=== PATIENT | female | born 1985 | race Caucasian/White ===

== ENCOUNTER 2021-07-28 14:37 | Inpatient (IN) | payer OTHER ==
[2021-07-28] MEDS ORDERED: MENTHOL/PHENOL 1 EACH UD MM PRN (17:02)
[2021-07-28] MEDS ORDERED: MAG HYDROX/AL HYDROX/SIMETH 30 ML UNIT-DOSE CUP PO PRN (17:02)
[2021-07-28] MEDS ORDERED: MAGNESIUM CITRATE 300 ML BOTTLE PO PRN (17:02)
[2021-07-28] MEDS ORDERED: ACETAMINOPHEN 325 MG TABLET (FP) PO PRN ×2 (17:02)
[2021-07-28] MEDS ORDERED: MAGNESIUM HYDROX 2400MG/30ML ORAL SUSPENSION 30 ML CUP PO PRN (17:02)
[2021-07-28] MEDS ORDERED: IBUPROFEN 400 MG TABLET (FP) PO PRN (17:02)
[2021-07-28] MEDS ORDERED: ONDANSETRON *ODT* 4 MG TABLET SL PRN (17:02)
[2021-07-28 17:08] VITALS: BMI 25.8
[2021-07-28] MEDS ORDERED: cloNIDine HCL 0.1 MG TABLET PO PRN (17:15)
[2021-07-28] MEDS: PRENATAL VITAMINS W/ FOLIC ACID TABLET (FP) PO SCH (19:10)
[2021-07-28] MEDS: hydrOXYzine PAMOATE 25 MG CAPSULE (FP) PO SCH ×2 (19:10→22:54)
[2021-07-28] MEDS: THIAMINE HCL 100 MG TABLET (FP) PO SCH (22:54)
[2021-07-28] MEDS: MELATONIN 5 MG TABLETS PO SCH (22:54)
[2021-07-29] MEDS: hydrOXYzine PAMOATE 25 MG CAPSULE (FP) PO SCH (07:08)
[2021-07-29 09:54] LABS: HEMATOCRIT 36.6 % (32.4-45.2); HEMOGLOBIN 12.5 GM/dL (10.7-15.3); MCH 31.1 pg (25.7-33.7); MCHC 34.1 g/dl (32.0-36.0); MEAN CELL VOLUME 91.3 fl (80-96); MEAN PLT VOLUME 8.8 fl (7.5-11.1); PLATELET COUNT 209 10^3/uL (134-434); RBC 4.01 M/mm3 (3.60-5.2); RDW 13.4 % (11.6-15.6); WHITE BLOOD COUNT 6.6 K/mm3 (4.0-10.0)
[2021-07-29] MEDS: methaDONE HCL 10 MG TABLET (FOR DETOX USE ONLY) PO ONE ×2 (10:05→10:20)
[2021-07-29 10:08] LABS: BLOOD UREA NITROGEN 15.8 mg/dL (7-18); CALCIUM 8.9 mg/dL (8.5-10.1)
[2021-07-29 10:09] LABS: ALBUMIN 3.3 g/dl (3.4-5.0)
[2021-07-29 10:11] LABS: CREATININE 0.7 mg/dL (0.55-1.3)
[2021-07-29 10:13] LABS: BILIRUBIN,TOTAL 0.4 mg/dL (0.2-1)
[2021-07-29] MEDS: PRENATAL VITAMINS W/ FOLIC ACID TABLET (FP) PO SCH (11:05)
[2021-07-29] MEDS: METHOCARBAMOL 500 MG TABLET PO PRN ×2 (12:11→22:24)
[2021-07-29] MEDS: BISMUTH SUBSALICYLATE 524 MG/30 ML PO PRN (12:12)
[2021-07-29] MEDS ORDERED: methaDONE HCL 10 MG TABLET (FOR DETOX USE ONLY) PO ONE (14:00)
[2021-07-29] MEDS ORDERED: methaDONE HCL 10 MG TABLET (FOR DETOX USE ONLY) ONE (15:02)
[2021-07-29] MEDS: GABAPENTIN 300 MG CAPSULE PO SCH (22:01)
[2021-07-29] MEDS: QUEtiapine FUMARATE 25 MG TABLET PO SCH (22:01)
[2021-07-29] MEDS: THIAMINE HCL 100 MG TABLET (FP) PO SCH (22:01)
[2021-07-29] MEDS: MELATONIN 5 MG TABLETS PO SCH (22:01)
[2021-07-30] MEDS ORDERED: methaDONE HCL 10 MG TABLET (FOR DETOX USE ONLY) ONE (09:39)
[2021-07-30] MEDS: GABAPENTIN 300 MG CAPSULE PO SCH ×2 (10:30→22:15)
[2021-07-30] MEDS: PRENATAL VITAMINS W/ FOLIC ACID TABLET (FP) PO SCH (10:30)
[2021-07-30] MEDS: ESCITALOPRAM OXALATE 20 MG TABLET PO SCH (10:30)
[2021-07-30] MEDS: QUEtiapine FUMARATE 25 MG TABLET PO SCH (22:15)
[2021-07-30] MEDS: MELATONIN 5 MG TABLETS PO SCH (22:15)
[2021-07-30] MEDS: THIAMINE HCL 100 MG TABLET (FP) PO SCH (22:15)
[2021-07-30] MEDS: diazePAM 5 MG TABLET PO PRN (22:17)
[2021-07-31] MEDS ORDERED: methaDONE HCL 10 MG TABLET (FOR DETOX USE ONLY) PO ONE (10:00)
[2021-07-31] MEDS: ESCITALOPRAM OXALATE 20 MG TABLET PO SCH (10:44)
[2021-07-31] MEDS: GABAPENTIN 300 MG CAPSULE PO SCH ×2 (10:44→21:55)
[2021-07-31] MEDS: PRENATAL VITAMINS W/ FOLIC ACID TABLET (FP) PO SCH (10:46)
[2021-07-31] MEDS: QUEtiapine FUMARATE 25 MG TABLET PO SCH (21:55)
[2021-07-31] MEDS: MELATONIN 5 MG TABLETS PO SCH (21:55)
[2021-07-31] MEDS: THIAMINE HCL 100 MG TABLET (FP) PO SCH (21:55)
[2021-07-31] MEDS: METHOCARBAMOL 500 MG TABLET PO PRN (21:57)
[2021-07-31] MEDS: diazePAM 5 MG TABLET PO PRN (21:57)
[2021-07-31] MEDS: BISMUTH SUBSALICYLATE 524 MG/30 ML PO PRN (21:59)
[2021-08-01] MEDS: ESCITALOPRAM OXALATE 20 MG TABLET PO SCH (10:15)
[2021-08-01] MEDS: PRENATAL VITAMINS W/ FOLIC ACID TABLET (FP) PO SCH (10:15)
[2021-08-01] MEDS: GABAPENTIN 300 MG CAPSULE PO SCH ×2 (10:15→22:33)
[2021-08-01] MEDS: diazePAM 5 MG TABLET PO PRN ×2 (15:25→22:33)
[2021-08-01] MEDS: NICOTINE 10 MG CARTRIDGE (INHALER) IH PRN ×2 (15:30→22:51)
[2021-08-01] MEDS: METHOCARBAMOL 500 MG TABLET PO PRN (18:05)
[2021-08-01] MEDS: QUEtiapine FUMARATE 25 MG TABLET PO SCH (22:33)
[2021-08-01] MEDS: MELATONIN 5 MG TABLETS PO SCH (22:34)
[2021-08-01] MEDS: THIAMINE HCL 100 MG TABLET (FP) PO SCH (22:34)
[2021-08-02] MEDS: diazePAM 5 MG TABLET PO PRN ×2 (06:52→10:51)
[2021-08-02] MEDS ORDERED: methaDONE HCL 10 MG TABLET (FOR DETOX USE ONLY) PO ONE (10:00)
[2021-08-02] MEDS: GABAPENTIN 300 MG CAPSULE PO SCH ×2 (10:52→22:17)
[2021-08-02] MEDS: ESCITALOPRAM OXALATE 20 MG TABLET PO SCH (10:52)
[2021-08-02] MEDS: PRENATAL VITAMINS W/ FOLIC ACID TABLET (FP) PO SCH (10:52)
[2021-08-02] MEDS: METHOCARBAMOL 500 MG TABLET PO PRN (19:16)
[2021-08-02] MEDS: THIAMINE HCL 100 MG TABLET (FP) PO SCH (22:17)
[2021-08-02] MEDS: QUEtiapine FUMARATE 25 MG TABLET PO SCH (22:17)
[2021-08-02] MEDS: MELATONIN 5 MG TABLETS PO SCH (22:17)
[2021-08-02] MEDS: hydrOXYzine PAMOATE 25 MG CAPSULE (FP) PO PRN (22:45)
[2021-08-03] MEDS: hydrOXYzine PAMOATE 25 MG CAPSULE (FP) PO PRN (08:56)
[2021-08-03] MEDS: GABAPENTIN 300 MG CAPSULE PO SCH (10:22)
[2021-08-03] MEDS: ESCITALOPRAM OXALATE 20 MG TABLET PO SCH (10:22)
[2021-08-03] MEDS: PRENATAL VITAMINS W/ FOLIC ACID TABLET (FP) PO SCH (10:22)
[2021-08-03 12:54] VITALS: BP 88/51; PULSE 63; TEMP 97.7
== END 2021-08-03 13:30 | disposition other institution (70) | DRG 773 ==
LOC: YASAS 14:37 → UNDOADMIN 17:20 → Y3N 17:20
PROVIDERS: ADMIT Allergy & Immunology; ATTEND Allergy & Immunology
PROC: HZ2ZZZZ Detoxification Services for Substance Abuse Treatment (ICD-10-PCS; principal; 2021-07-28)
DX: F11.23 Opioid dependence with withdrawal (principal); F10.230 Alcohol dependence with withdrawal, uncomplicated; F14.20 Cocaine dependence, uncomplicated; F17.210 Nicotine dependence, cigarettes, uncomplicated; F19.24 Other psychoactive substance dependence with psychoactive substance-induced mood disorder; F32.A Depression, unspecified; Z56.0 Unemployment, unspecified; Z59.01 Sheltered homelessness
CPT/HCPCS: 36415; 80053; 85027; 86780; C9803; J0735; U0003; U0005

== ENCOUNTER 2021-08-03 14:02 | Inpatient (IN) | payer OTHER ==
[2021-08-03] MEDS ORDERED: MAGNESIUM HYDROX 2400MG/30ML ORAL SUSPENSION 30 ML CUP PO PRN (14:09)
[2021-08-03] MEDS ORDERED: MAGNESIUM CITRATE 300 ML BOTTLE PO PRN (14:09)
[2021-08-03] MEDS ORDERED: IBUPROFEN 400 MG TABLET (FP) PO PRN (14:09)
[2021-08-03] MEDS ORDERED: MAG HYDROX/AL HYDROX/SIMETH 30 ML UNIT-DOSE CUP PO PRN (14:09)
[2021-08-03] MEDS ORDERED: ACETAMINOPHEN 325 MG TABLET (FP) PO PRN (14:09)
[2021-08-03] MEDS ORDERED: P-EPHED 60MG/TRIPROLIDI 2.5MG TABLET PO PRN (14:09)
[2021-08-03] MEDS ORDERED: guaiFENesin 200 MG/10 ML 10 ML UNIT-DOSE CUPS PO PRN (14:09)
[2021-08-03] MEDS ORDERED: MENTHOL/PHENOL 1 EACH UD MM PRN (14:09)
[2021-08-03] MEDS ORDERED: LOPERAMIDE HCL 2 MG CAPSULE PO PRN (14:09)
[2021-08-03] MEDS ORDERED: NICOTINE POLACRILEX 2 MG GUM BUC PRN (14:14)
[2021-08-03] MEDS: hydrOXYzine PAMOATE 25 MG CAPSULE (FP) PO SCH ×2 (18:30→21:45)
[2021-08-03] MEDS: GABAPENTIN 300 MG CAPSULE PO SCH (21:47)
[2021-08-03] MEDS: QUEtiapine FUMARATE 25 MG TABLET PO SCH (21:47)
[2021-08-03] MEDS: THIAMINE HCL 100 MG TABLET (FP) PO SCH (21:48)
[2021-08-03] MEDS ORDERED: MELATONIN 5 MG TABLETS PO SCH (22:00)
[2021-08-04] MEDS: hydrOXYzine PAMOATE 25 MG CAPSULE (FP) PO SCH ×5 (06:35→21:05)
[2021-08-04] MEDS ORDERED: NICOTINE 7 MG/24 HOURS TOPICAL PATCH TD SCH (10:00)
[2021-08-04] MEDS ORDERED: ESCITALOPRAM OXALATE 20 MG TABLET PO SCH (10:00)
[2021-08-04] MEDS: PRENATAL VITAMINS W/ FOLIC ACID TABLET (FP) PO SCH (10:26)
[2021-08-04] MEDS: GABAPENTIN 300 MG CAPSULE PO SCH ×2 (10:27→21:05)
[2021-08-04] MEDS: NICOTINE 21 MG/24 HOURS TOPICAL PATCH TD SCH (10:27)
[2021-08-04] MEDS: MELATONIN 5 MG TABLETS PO SCH (21:04)
[2021-08-04] MEDS: QUEtiapine FUMARATE 25 MG TABLET PO SCH (21:05)
[2021-08-04] MEDS: THIAMINE HCL 100 MG TABLET (FP) PO SCH (21:05)
[2021-08-04] MEDS: NICOTINE 10 MG CARTRIDGE (INHALER) IH PRN (21:12)
[2021-08-04] MEDS ORDERED: hydrOXYzine PAMOATE 25 MG CAPSULE (FP) PO ONE (23:14)
[2021-08-05] MEDS: hydrOXYzine PAMOATE 25 MG CAPSULE (FP) PO SCH ×5 (07:12→21:04)
[2021-08-05] MEDS ORDERED: GABAPENTIN 300 MG CAPSULE PO SCH (09:37)
[2021-08-05] MEDS: GABAPENTIN 300 MG CAPSULE PO SCH ×2 (10:38→21:04)
[2021-08-05] MEDS: NICOTINE 21 MG/24 HOURS TOPICAL PATCH TD SCH (10:39)
[2021-08-05] MEDS: NICOTINE 10 MG CARTRIDGE (INHALER) IH PRN ×3 (10:39→17:33)
[2021-08-05] MEDS: PRENATAL VITAMINS W/ FOLIC ACID TABLET (FP) PO SCH (10:39)
[2021-08-05] MEDS: ESCITALOPRAM OXALATE 20 MG TABLET PO SCH (21:03)
[2021-08-05] MEDS: QUEtiapine FUMARATE 50 MG TABLET PO SCH (21:03)
[2021-08-05] MEDS: THIAMINE HCL 100 MG TABLET (FP) PO SCH (21:04)
[2021-08-05] MEDS: MELATONIN 5 MG TABLETS PO SCH (21:05)
[2021-08-06] MEDS: hydrOXYzine PAMOATE 25 MG CAPSULE (FP) PO SCH ×5 (06:24→21:08)
[2021-08-06] MEDS: NICOTINE 10 MG CARTRIDGE (INHALER) IH PRN ×2 (06:26→19:37)
[2021-08-06] MEDS: PRENATAL VITAMINS W/ FOLIC ACID TABLET (FP) PO SCH (10:27)
[2021-08-06] MEDS: GABAPENTIN 300 MG CAPSULE PO SCH ×2 (10:27→21:08)
[2021-08-06] MEDS: NICOTINE 21 MG/24 HOURS TOPICAL PATCH TD SCH (10:28)
[2021-08-06] MEDS: THIAMINE HCL 100 MG TABLET (FP) PO SCH (21:08)
[2021-08-06] MEDS: MELATONIN 5 MG TABLETS PO SCH (21:08)
[2021-08-06] MEDS: ESCITALOPRAM OXALATE 20 MG TABLET PO SCH (21:08)
[2021-08-06] MEDS: QUEtiapine FUMARATE 50 MG TABLET PO SCH (21:08)
[2021-08-07] MEDS: hydrOXYzine PAMOATE 25 MG CAPSULE (FP) PO SCH ×5 (07:39→21:06)
[2021-08-07] MEDS: PRENATAL VITAMINS W/ FOLIC ACID TABLET (FP) PO SCH (10:01)
[2021-08-07] MEDS: GABAPENTIN 300 MG CAPSULE PO SCH ×2 (10:01→21:06)
[2021-08-07] MEDS: NICOTINE 21 MG/24 HOURS TOPICAL PATCH TD SCH (10:02)
[2021-08-07] MEDS: NICOTINE 10 MG CARTRIDGE (INHALER) IH PRN (18:35)
[2021-08-07] MEDS: ESCITALOPRAM OXALATE 20 MG TABLET PO SCH (21:06)
[2021-08-07] MEDS: MELATONIN 5 MG TABLETS PO SCH (21:06)
[2021-08-07] MEDS: QUEtiapine FUMARATE 50 MG TABLET PO SCH (21:06)
[2021-08-07] MEDS: THIAMINE HCL 100 MG TABLET (FP) PO SCH (21:06)
[2021-08-08] MEDS: NICOTINE 10 MG CARTRIDGE (INHALER) IH PRN ×2 (06:11→14:05)
[2021-08-08] MEDS: hydrOXYzine PAMOATE 25 MG CAPSULE (FP) PO SCH ×5 (06:11→21:02)
[2021-08-08] MEDS: PRENATAL VITAMINS W/ FOLIC ACID TABLET (FP) PO SCH (10:13)
[2021-08-08] MEDS: GABAPENTIN 300 MG CAPSULE PO SCH ×2 (10:13→21:01)
[2021-08-08] MEDS: NICOTINE 21 MG/24 HOURS TOPICAL PATCH TD SCH (10:13)
[2021-08-08] MEDS: ESCITALOPRAM OXALATE 20 MG TABLET PO SCH (21:01)
[2021-08-08] MEDS: QUEtiapine FUMARATE 50 MG TABLET PO SCH (21:01)
[2021-08-08] MEDS: THIAMINE HCL 100 MG TABLET (FP) PO SCH (21:01)
[2021-08-08] MEDS ORDERED: SUVOREXANT 10 MG TABLET PO PRN (22:00)
[2021-08-09] MEDS: hydrOXYzine PAMOATE 25 MG CAPSULE (FP) PO SCH ×2 (06:14→10:07)
[2021-08-09] MEDS: PRENATAL VITAMINS W/ FOLIC ACID TABLET (FP) PO SCH (10:06)
[2021-08-09] MEDS: GABAPENTIN 300 MG CAPSULE PO SCH ×2 (10:06→21:34)
[2021-08-09] MEDS: NICOTINE 21 MG/24 HOURS TOPICAL PATCH TD SCH (10:06)
[2021-08-09] MEDS: hydrOXYzine PAMOATE 25 MG CAPSULE (FP) PO PRN ×2 (14:33→18:05)
[2021-08-09] MEDS: NICOTINE 10 MG CARTRIDGE (INHALER) IH PRN ×2 (14:34→18:05)
[2021-08-09 20:21] LABS: PH,URINE 6.5 (5.0-8.0); URINE APPEARANCE CLEAR; URINE BILIRUBIN NEGATIVE (NEGATIVE); URINE COLOR YELLOW; URINE GLUCOSE (UA) NEGATIVE (NEGATIVE); URINE KETONE NEGATIVE (NEGATIVE); URINE LEUK ESTERASE NEGATIVE (NEGATIVE); URINE NITRITE NEGATIVE (NEGATIVE); URINE PROTEIN NEGATIVE (NEGATIVE); URINE UROBILINOGEN 0.2 mg/dL (0.2-1.0)
[2021-08-09] MEDS: SUVOREXANT 20 MG TABLET PO PRN (21:34)
[2021-08-09] MEDS: QUEtiapine FUMARATE 50 MG TABLET PO SCH (21:36)
[2021-08-09] MEDS: ESCITALOPRAM OXALATE 20 MG TABLET PO SCH (21:37)
[2021-08-09] MEDS: THIAMINE HCL 100 MG TABLET (FP) PO SCH (21:37)
[2021-08-10] MEDS: NICOTINE 21 MG/24 HOURS TOPICAL PATCH TD SCH (10:14)
[2021-08-10] MEDS: GABAPENTIN 300 MG CAPSULE PO SCH ×2 (10:14→21:06)
[2021-08-10] MEDS: PRENATAL VITAMINS W/ FOLIC ACID TABLET (FP) PO SCH (10:14)
[2021-08-10] MEDS: NICOTINE 10 MG CARTRIDGE (INHALER) IH PRN ×3 (10:17→21:09)
[2021-08-10] MEDS: hydrOXYzine PAMOATE 25 MG CAPSULE (FP) PO PRN ×2 (14:27→18:58)
[2021-08-10] MEDS: QUEtiapine FUMARATE 50 MG TABLET PO SCH (21:06)
[2021-08-10] MEDS: ESCITALOPRAM OXALATE 20 MG TABLET PO SCH (21:06)
[2021-08-10] MEDS: THIAMINE HCL 100 MG TABLET (FP) PO SCH (21:06)
[2021-08-10] MEDS: SUVOREXANT 20 MG TABLET PO PRN (21:07)
[2021-08-11] MEDS: NICOTINE 21 MG/24 HOURS TOPICAL PATCH TD SCH (09:51)
[2021-08-11] MEDS: PRENATAL VITAMINS W/ FOLIC ACID TABLET (FP) PO SCH (09:51)
[2021-08-11] MEDS: GABAPENTIN 300 MG CAPSULE PO SCH ×2 (09:51→21:09)
[2021-08-11] MEDS: NICOTINE 10 MG CARTRIDGE (INHALER) IH PRN ×3 (09:52→21:12)
[2021-08-11] MEDS: hydrOXYzine PAMOATE 25 MG CAPSULE (FP) PO PRN ×2 (12:39→19:07)
[2021-08-11] MEDS: QUEtiapine FUMARATE 50 MG TABLET PO SCH (21:09)
[2021-08-11] MEDS: THIAMINE HCL 100 MG TABLET (FP) PO SCH (21:09)
[2021-08-11] MEDS: ESCITALOPRAM OXALATE 20 MG TABLET PO SCH (21:09)
[2021-08-11] MEDS: SUVOREXANT 20 MG TABLET PO PRN (21:10)
[2021-08-12] MEDS: NICOTINE 10 MG CARTRIDGE (INHALER) IH PRN ×3 (08:36→22:04)
[2021-08-12] MEDS: PRENATAL VITAMINS W/ FOLIC ACID TABLET (FP) PO SCH (10:19)
[2021-08-12] MEDS: hydrOXYzine PAMOATE 25 MG CAPSULE (FP) PO PRN ×2 (10:19→21:08)
[2021-08-12] MEDS: NICOTINE 21 MG/24 HOURS TOPICAL PATCH TD SCH (10:19)
[2021-08-12] MEDS: GABAPENTIN 300 MG CAPSULE PO SCH ×2 (10:19→21:08)
[2021-08-12] MEDS: QUEtiapine FUMARATE 50 MG TABLET PO SCH (21:08)
[2021-08-12] MEDS: ESCITALOPRAM OXALATE 20 MG TABLET PO SCH (21:08)
[2021-08-12] MEDS: THIAMINE HCL 100 MG TABLET (FP) PO SCH (21:08)
[2021-08-12] MEDS: SUVOREXANT 20 MG TABLET PO PRN (21:10)
[2021-08-13 08:34] VITALS: BP 117/69; PULSE 76; TEMP 97.7
[2021-08-13] MEDS: GABAPENTIN 300 MG CAPSULE PO SCH ×2 (10:21→21:22)
[2021-08-13] MEDS: hydrOXYzine PAMOATE 25 MG CAPSULE (FP) PO PRN ×4 (10:21→21:27)
[2021-08-13] MEDS: PRENATAL VITAMINS W/ FOLIC ACID TABLET (FP) PO SCH (10:21)
[2021-08-13] MEDS: NICOTINE 10 MG CARTRIDGE (INHALER) IH PRN ×2 (10:22→22:55)
[2021-08-13] MEDS: NICOTINE 21 MG/24 HOURS TOPICAL PATCH TD SCH (10:22)
[2021-08-13] MEDS ORDERED: NALTREXONE HCL 50 MG TABLET PO ONE ×2 (12:00→21:00)
[2021-08-13] MEDS: QUEtiapine FUMARATE 50 MG TABLET PO SCH (21:22)
[2021-08-13] MEDS: THIAMINE HCL 100 MG TABLET (FP) PO SCH (21:22)
[2021-08-13] MEDS: ESCITALOPRAM OXALATE 20 MG TABLET PO SCH (21:22)
[2021-08-13] MEDS ORDERED: SUVOREXANT 20 MG TABLET PO ONE (22:15)
[2021-08-14] MEDS ORDERED: NALTREXONE HCL 50 MG TABLET PO SCH ×2 (10:00)
[2021-08-14] MEDS: GABAPENTIN 300 MG CAPSULE PO SCH ×2 (10:35→21:03)
[2021-08-14] MEDS: PRENATAL VITAMINS W/ FOLIC ACID TABLET (FP) PO SCH (10:36)
[2021-08-14] MEDS: NICOTINE 21 MG/24 HOURS TOPICAL PATCH TD SCH (10:36)
[2021-08-14] MEDS: NICOTINE 10 MG CARTRIDGE (INHALER) IH PRN ×3 (11:44→21:39)
[2021-08-14] MEDS: hydrOXYzine PAMOATE 25 MG CAPSULE (FP) PO PRN ×2 (14:45→21:04)
[2021-08-14] MEDS: QUEtiapine FUMARATE 50 MG TABLET PO SCH (21:03)
[2021-08-14] MEDS: NALTREXONE HCL 50 MG TABLET PO SCH (21:03)
[2021-08-14] MEDS: ESCITALOPRAM OXALATE 20 MG TABLET PO SCH (21:03)
[2021-08-14] MEDS: THIAMINE HCL 100 MG TABLET (FP) PO SCH (21:04)
[2021-08-14] MEDS: SUVOREXANT 10 MG TABLET PO PRN (21:40)
[2021-08-15] MEDS: GABAPENTIN 300 MG CAPSULE PO SCH ×2 (10:21→21:01)
[2021-08-15] MEDS: PRENATAL VITAMINS W/ FOLIC ACID TABLET (FP) PO SCH (10:21)
[2021-08-15] MEDS: NICOTINE 21 MG/24 HOURS TOPICAL PATCH TD SCH (10:21)
[2021-08-15] MEDS: NICOTINE 10 MG CARTRIDGE (INHALER) IH PRN ×2 (13:12→21:06)
[2021-08-15] MEDS: hydrOXYzine PAMOATE 25 MG CAPSULE (FP) PO PRN ×2 (14:37→18:39)
[2021-08-15] MEDS: THIAMINE HCL 100 MG TABLET (FP) PO SCH (21:01)
[2021-08-15] MEDS: QUEtiapine FUMARATE 50 MG TABLET PO SCH (21:01)
[2021-08-15] MEDS: ESCITALOPRAM OXALATE 20 MG TABLET PO SCH (21:01)
[2021-08-15] MEDS: NALTREXONE HCL 50 MG TABLET PO SCH (21:02)
[2021-08-15] MEDS: SUVOREXANT 10 MG TABLET PO PRN (21:03)
[2021-08-16] MEDS: PRENATAL VITAMINS W/ FOLIC ACID TABLET (FP) PO SCH (10:00)
[2021-08-16] MEDS: NICOTINE 21 MG/24 HOURS TOPICAL PATCH TD SCH (10:00)
[2021-08-16] MEDS: GABAPENTIN 300 MG CAPSULE PO SCH ×2 (10:00→21:00)
[2021-08-16] MEDS ORDERED: NALTREXONE MICROSPHERES (VIVITROL) 380 MG DISP.SYRIN IM ONE (13:00)
[2021-08-16] MEDS: hydrOXYzine PAMOATE 25 MG CAPSULE (FP) PO PRN ×2 (15:55→21:01)
[2021-08-16] MEDS: QUEtiapine FUMARATE 50 MG TABLET PO SCH (21:00)
[2021-08-16] MEDS: ESCITALOPRAM OXALATE 20 MG TABLET PO SCH (21:00)
[2021-08-16] MEDS: THIAMINE HCL 100 MG TABLET (FP) PO SCH (21:00)
[2021-08-16] MEDS: SUVOREXANT 10 MG TABLET PO PRN (21:02)
[2021-08-16] MEDS: NICOTINE 10 MG CARTRIDGE (INHALER) IH PRN (21:03)
[2021-08-17] MEDS: GABAPENTIN 300 MG CAPSULE PO SCH (09:09)
[2021-08-17] MEDS: NICOTINE 21 MG/24 HOURS TOPICAL PATCH TD SCH (09:10)
[2021-08-17] MEDS: PRENATAL VITAMINS W/ FOLIC ACID TABLET (FP) PO SCH (09:10)
== END 2021-08-17 10:15 | disposition home or self-care (01) | DRG 772 ==
LOC: YASAS 14:02 → Y5N 14:03
PROVIDERS: ADMIT Allergy & Immunology; ATTEND Allergy & Immunology
PROC: HZ42ZZZ Group Counseling for Substance Abuse Treatment, Cognitive-Behavioral (ICD-10-PCS; principal; 2021-08-03)
DX: F11.20 Opioid dependence, uncomplicated (principal); F10.20 Alcohol dependence, uncomplicated; F14.20 Cocaine dependence, uncomplicated; F17.210 Nicotine dependence, cigarettes, uncomplicated; F19.282 Other psychoactive substance dependence with psychoactive substance-induced sleep disorder; F19.280 Other psychoactive substance dependence with psychoactive substance-induced anxiety disorder; F19.24 Other psychoactive substance dependence with psychoactive substance-induced mood disorder; F41.8 Other specified anxiety disorders; F32.A Depression, unspecified
CPT/HCPCS: 81003; 84703; C9803-CS; J2315; U0003; U0005

== ENCOUNTER 2022-03-13 13:55 | Inpatient (IN) | payer OTHER ==
[2022-03-13 14:41] VITALS: BMI 29.8
[2022-03-13] MEDS ORDERED: IBUPROFEN 400 MG TABLET (FP) PO PRN (16:24)
[2022-03-13] MEDS ORDERED: MAGNESIUM CITRATE 300 ML BOTTLE PO PRN (16:24)
[2022-03-13] MEDS ORDERED: IBUPROFEN 600 MG TABLET (FP) PO PRN (16:24)
[2022-03-13] MEDS ORDERED: DICYCLOMINE HCL 10 MG CAPSULE PO PRN (16:24)
[2022-03-13] MEDS ORDERED: NALOXONE HCL (KLOXXADO) 8 MG SPRAY NS PRN (16:24)
[2022-03-13] MEDS ORDERED: NICOTINE POLACRILEX 2 MG GUM BUC PRN (16:24)
[2022-03-13] MEDS ORDERED: BENZOCAINE/MENTHOL (CHLORASEPTIC ) LOZENGE MM PRN (16:24)
[2022-03-13] MEDS ORDERED: cloNIDine HCL 0.1 MG TABLET PO PRN (16:24)
[2022-03-13] MEDS ORDERED: methaDONE HCL 10 MG TABLET (FOR DETOX USE ONLY) PO ONE (16:24)
[2022-03-13] MEDS ORDERED: MAGNESIUM HYDROX 2400MG/30ML ORAL SUSPENSION 30 ML CUP PO PRN (16:24)
[2022-03-13] MEDS ORDERED: LOPERAMIDE HCL 2 MG CAPSULE PO PRN (16:24)
[2022-03-13] MEDS ORDERED: MAG HYDROX/AL HYDROX/SIMETH 30 ML UNIT-DOSE CUP PO PRN (16:24)
[2022-03-13] MEDS ORDERED: BISMUTH SUBSALICYLATE 524 MG/30 ML PO PRN (16:24)
[2022-03-13] MEDS ORDERED: ACETAMINOPHEN 325 MG TABLET (FP) PO PRN ×2 (16:24)
[2022-03-13] MEDS: METHOCARBAMOL 500 MG TABLET PO PRN (18:09)
[2022-03-13] MEDS ORDERED: MELATONIN 5 MG TABLETS PO SCH (22:00)
[2022-03-13] MEDS: THIAMINE HCL 100 MG TABLET (FP) PO SCH (22:24)
[2022-03-14] MEDS ORDERED: NICOTINE 14 MG/24 HOURS TOPICAL PATCH TD SCH (10:00)
[2022-03-14] MEDS: PRENATAL VITAMINS W/ FOLIC ACID TABLET (FP) PO SCH (10:19)
[2022-03-14] MEDS: METHOCARBAMOL 500 MG TABLET PO PRN ×2 (10:22→20:00)
[2022-03-14 10:23] LABS: HEMATOCRIT 35.1 % (32.4-45.2); MCH 31.1 pg (25.7-33.7); MCHC 34.1 g/dl (32.0-36.0); MEAN CELL VOLUME 91.3 fl (80-96); MEAN PLT VOLUME 8.1 fl (7.5-11.1); PLATELET COUNT 255 10^3/uL (134-434); RBC 3.85 M/mm3 (3.60-5.2); RDW 12.7 % (11.6-15.6); WHITE BLOOD COUNT 5.9 K/mm3 (4.0-10.0)
[2022-03-14 10:32] LABS: ALBUMIN 3.4 g/dl (3.4-5.0); BLOOD UREA NITROGEN 10.2 mg/dL (7-18)
[2022-03-14 10:35] LABS: CREATININE 0.6 mg/dL (0.55-1.3)
[2022-03-14 10:37] LABS: TOT PROT 6.1 g/dl (6.4-8.2)
[2022-03-14 10:54] LABS: BILIRUBIN,TOTAL 0.2 mg/dL (0.2-1)
[2022-03-14] MEDS: GABAPENTIN 400 MG CAPSULE PO SCH ×2 (14:42→22:16)
[2022-03-14] MEDS: NICOTINE 10 MG CARTRIDGE (INHALER) IH PRN (14:42)
[2022-03-14] MEDS ORDERED: ONDANSETRON *ODT* 4 MG TABLET SL PRN (14:48)
[2022-03-14] MEDS ORDERED: TRIMETHOBENZAMIDE HCL 200MG/2ML INJ IM PRN (14:48)
[2022-03-14] MEDS: QUEtiapine FUMARATE 50 MG TABLET PO SCH (22:16)
[2022-03-14] MEDS: THIAMINE HCL 100 MG TABLET (FP) PO SCH (22:16)
[2022-03-14] MEDS: SUVOREXANT 10 MG TABLET PO PRN (22:19)
[2022-03-15] MEDS: METHOCARBAMOL 500 MG TABLET PO PRN ×3 (03:44→18:30)
[2022-03-15] MEDS: GABAPENTIN 400 MG CAPSULE PO SCH ×3 (05:59→22:14)
[2022-03-15] MEDS ORDERED: methaDONE HCL 10 MG TABLET (FOR DETOX USE ONLY) PO ONE (10:00)
[2022-03-15] MEDS: PRENATAL VITAMINS W/ FOLIC ACID TABLET (FP) PO SCH (10:21)
[2022-03-15] MEDS: NICOTINE 10 MG CARTRIDGE (INHALER) IH PRN (12:06)
[2022-03-15] MEDS: QUEtiapine FUMARATE 50 MG TABLET PO SCH (22:14)
[2022-03-15] MEDS: THIAMINE HCL 100 MG TABLET (FP) PO SCH (22:14)
[2022-03-15] MEDS: SUVOREXANT 10 MG TABLET PO PRN (22:16)
[2022-03-16] MEDS: GABAPENTIN 400 MG CAPSULE PO SCH ×3 (05:57→22:05)
[2022-03-16] MEDS: METHOCARBAMOL 500 MG TABLET PO PRN ×2 (05:59→16:10)
[2022-03-16] MEDS: PRENATAL VITAMINS W/ FOLIC ACID TABLET (FP) PO SCH (10:22)
[2022-03-16] MEDS: NICOTINE 10 MG CARTRIDGE (INHALER) IH PRN ×3 (10:45→17:26)
[2022-03-16] MEDS ORDERED: SUVOREXANT 10 MG TABLET PO PRN (22:00)
[2022-03-16] MEDS: QUEtiapine FUMARATE 50 MG TABLET PO SCH (22:02)
[2022-03-16] MEDS: THIAMINE HCL 100 MG TABLET (FP) PO SCH (22:02)
[2022-03-16] MEDS: SUVOREXANT 10 MG TABLET PO PRN (22:05)
[2022-03-17] MEDS: METHOCARBAMOL 500 MG TABLET PO PRN ×3 (04:06→17:41)
[2022-03-17] MEDS: GABAPENTIN 400 MG CAPSULE PO SCH ×3 (05:55→22:16)
[2022-03-17] MEDS: NICOTINE 10 MG CARTRIDGE (INHALER) IH PRN ×2 (07:57→10:50)
[2022-03-17] MEDS ORDERED: methaDONE HCL 10 MG TABLET (FOR DETOX USE ONLY) PO ONE (10:00)
[2022-03-17] MEDS: PRENATAL VITAMINS W/ FOLIC ACID TABLET (FP) PO SCH (10:08)
[2022-03-17] MEDS ORDERED: SUVOREXANT 15 MG TABLET PO PRN (22:00)
[2022-03-17] MEDS: THIAMINE HCL 100 MG TABLET (FP) PO SCH (22:16)
[2022-03-17] MEDS: QUEtiapine FUMARATE 50 MG TABLET PO SCH (22:16)
[2022-03-18] MEDS: METHOCARBAMOL 500 MG TABLET PO PRN (01:45)
[2022-03-18] MEDS: GABAPENTIN 400 MG CAPSULE PO SCH (07:03)
[2022-03-18 10:05] VITALS: BP 144/77; PULSE 81; RESP 18; TEMP 98.4
[2022-03-18] MEDS: PRENATAL VITAMINS W/ FOLIC ACID TABLET (FP) PO SCH (11:18)
== END 2022-03-18 09:40 | disposition home or self-care (01) | DRG 773 ==
LOC: YASAS 13:55 → Y6N 15:54
PROVIDERS: ADMIT Allergy & Immunology; ATTEND Surgery
PROC: HZ2ZZZZ Detoxification Services for Substance Abuse Treatment (ICD-10-PCS; principal; 2022-03-13)
DX: F11.23 Opioid dependence with withdrawal (principal); F10.20 Alcohol dependence, uncomplicated; F14.10 Cocaine abuse, uncomplicated; F12.10 Cannabis abuse, uncomplicated; F17.210 Nicotine dependence, cigarettes, uncomplicated; F19.282 Other psychoactive substance dependence with psychoactive substance-induced sleep disorder; F19.280 Other psychoactive substance dependence with psychoactive substance-induced anxiety disorder; F19.24 Other psychoactive substance dependence with psychoactive substance-induced mood disorder; F31.31 Bipolar disorder, current episode depressed, mild; E78.5 Hyperlipidemia, unspecified
CPT/HCPCS: 36415; 80053; 81025; 85027; 86780; 87811; 93005; 93010; C9803-CS; J0735; Q0162; U0003; U0005

== ENCOUNTER 2022-05-20 13:12 | Inpatient (IN) | payer OTHER ==
[2022-05-20 13:50] VITALS: BMI 27.2
[2022-05-20] MEDS ORDERED: LOPERAMIDE HCL 2 MG CAPSULE PO PRN (15:49)
[2022-05-20] MEDS ORDERED: ONDANSETRON *ODT* 4 MG TABLET SL PRN (15:49)
[2022-05-20] MEDS ORDERED: MAGNESIUM CITRATE 300 ML BOTTLE PO PRN (15:49)
[2022-05-20] MEDS ORDERED: BENZOCAINE/MENTHOL (CHLORASEPTIC ) LOZENGE MM PRN (15:49)
[2022-05-20] MEDS ORDERED: ACETAMINOPHEN 325 MG TABLET (FP) PO PRN ×2 (15:49)
[2022-05-20] MEDS ORDERED: MAGNESIUM HYDROX 2400MG/30ML ORAL SUSPENSION 30 ML CUP PO PRN (15:49)
[2022-05-20] MEDS ORDERED: BISMUTH SUBSALICYLATE 524 MG/30 ML PO PRN (15:49)
[2022-05-20] MEDS ORDERED: DICYCLOMINE HCL 10 MG CAPSULE PO PRN (15:49)
[2022-05-20] MEDS ORDERED: IBUPROFEN 400 MG TABLET (FP) PO PRN (15:49)
[2022-05-20] MEDS ORDERED: MAG HYDROX/AL HYDROX/SIMETH 30 ML UNIT-DOSE CUP PO PRN (15:49)
[2022-05-20] MEDS ORDERED: NALOXONE HCL (KLOXXADO) 8 MG SPRAY NS PRN (15:49)
[2022-05-20] MEDS ORDERED: methaDONE HCL 10 MG TABLET (FOR DETOX USE ONLY) PO ONE (15:56)
[2022-05-20] MEDS ORDERED: methaDONE HCL 10 MG TABLET (FOR DETOX USE ONLY) ONE (16:39)
[2022-05-20] MEDS: cloNIDine HCL 0.1 MG TABLET PO PRN ×2 (17:47→22:11)
[2022-05-20] MEDS: NICOTINE 10 MG CARTRIDGE (INHALER) IH PRN ×2 (17:50→22:12)
[2022-05-20] MEDS ORDERED: MELATONIN 5 MG TABLETS PO SCH (22:00)
[2022-05-20] MEDS: THIAMINE HCL 100 MG TABLET (FP) PO SCH (22:08)
[2022-05-20] MEDS: METHOCARBAMOL 500 MG TABLET PO PRN (22:09)
[2022-05-20] MEDS: hydrOXYzine PAMOATE 25 MG CAPSULE (FP) PO PRN ×2 (22:09→23:36)
[2022-05-20 23:35] LABS: PH,URINE 6.5 (5.0-8.0); URINE APPEARANCE CLEAR; URINE BILIRUBIN NEGATIVE (NEGATIVE); URINE COLOR YELLOW; URINE GLUCOSE (UA) NEGATIVE (NEGATIVE); URINE KETONE NEGATIVE (NEGATIVE); URINE LEUK ESTERASE NEGATIVE (NEGATIVE); URINE NITRITE NEGATIVE (NEGATIVE); URINE PROTEIN NEGATIVE (NEGATIVE); URINE UROBILINOGEN 0.2 mg/dL (0.2-1.0)
[2022-05-21] MEDS: cloNIDine HCL 0.1 MG TABLET PO PRN ×2 (03:04→17:36)
[2022-05-21] MEDS: NICOTINE 10 MG CARTRIDGE (INHALER) IH PRN ×4 (03:07→19:00)
[2022-05-21] MEDS: METHOCARBAMOL 500 MG TABLET PO PRN ×3 (03:09→17:38)
[2022-05-21 10:12] LABS: HEMATOCRIT 37.3 % (32.4-45.2); HEMOGLOBIN 12.6 GM/dL (10.7-15.3); MCH 30.5 pg (25.7-33.7); MCHC 33.7 g/dl (32.0-36.0); MEAN CELL VOLUME 90.5 fl (80-96); MEAN PLT VOLUME 8.3 fl (7.5-11.1); PLATELET COUNT 262 10^3/uL (134-434); RBC 4.12 M/mm3 (3.60-5.2); RDW 12.5 % (11.6-15.6); WHITE BLOOD COUNT 8.2 K/mm3 (4.0-10.0)
[2022-05-21 10:32] LABS: ALBUMIN 3.7 g/dl (3.4-5.0); BLOOD UREA NITROGEN 18.2 mg/dL (7-18); CALCIUM 9.4 mg/dL (8.5-10.1)
[2022-05-21 10:36] LABS: CREATININE 0.8 mg/dL (0.55-1.3)
[2022-05-21 10:37] LABS: BILIRUBIN,TOTAL 0.2 mg/dL (0.2-1); TOT PROT 6.1 g/dl (6.4-8.2)
[2022-05-21] MEDS: hydrOXYzine PAMOATE 25 MG CAPSULE (FP) PO PRN ×2 (11:16→20:25)
[2022-05-21] MEDS: PRENATAL VITAMINS W/ FOLIC ACID TABLET (FP) PO SCH (11:16)
[2022-05-21] MEDS: THIAMINE HCL 100 MG TABLET (FP) PO SCH (22:10)
[2022-05-21] MEDS: SUVOREXANT 5 MG TABLET PO PRN (22:10)
[2022-05-21] MEDS: QUEtiapine FUMARATE 50 MG TABLET PO SCH (22:10)
[2022-05-22] MEDS ORDERED: methaDONE HCL 10 MG TABLET (FOR DETOX USE ONLY) PO ONE (10:00)
[2022-05-22] MEDS: PRENATAL VITAMINS W/ FOLIC ACID TABLET (FP) PO SCH (10:05)
[2022-05-22] MEDS: METHOCARBAMOL 500 MG TABLET PO PRN (10:07)
[2022-05-22] MEDS: NICOTINE 10 MG CARTRIDGE (INHALER) IH PRN ×2 (10:08→13:53)
[2022-05-22] MEDS: hydrOXYzine PAMOATE 25 MG CAPSULE (FP) PO PRN (13:36)
[2022-05-22] MEDS: cloNIDine HCL 0.1 MG TABLET PO PRN (13:39)
[2022-05-22] MEDS: THIAMINE HCL 100 MG TABLET (FP) PO SCH (22:22)
[2022-05-22] MEDS: QUEtiapine FUMARATE 50 MG TABLET PO SCH (22:22)
[2022-05-22] MEDS: SUVOREXANT 5 MG TABLET PO PRN (22:23)
[2022-05-23] MEDS: METHOCARBAMOL 500 MG TABLET PO PRN ×2 (01:05→22:07)
[2022-05-23] MEDS: hydrOXYzine PAMOATE 25 MG CAPSULE (FP) PO PRN ×3 (01:05→16:58)
[2022-05-23] MEDS: PRENATAL VITAMINS W/ FOLIC ACID TABLET (FP) PO SCH (10:14)
[2022-05-23] MEDS: NICOTINE 10 MG CARTRIDGE (INHALER) IH PRN ×3 (14:55→21:24)
[2022-05-23] MEDS: SUVOREXANT 5 MG TABLET PO PRN (22:07)
[2022-05-23] MEDS: QUEtiapine FUMARATE 50 MG TABLET PO SCH (22:07)
[2022-05-23] MEDS: THIAMINE HCL 100 MG TABLET (FP) PO SCH (22:07)
[2022-05-24] MEDS: hydrOXYzine PAMOATE 25 MG CAPSULE (FP) PO PRN (00:28)
[2022-05-24] MEDS: IBUPROFEN 600 MG TABLET (FP) PO PRN ×2 (02:31→20:47)
[2022-05-24] MEDS: NICOTINE 10 MG CARTRIDGE (INHALER) IH PRN ×3 (03:27→18:11)
[2022-05-24] MEDS ORDERED: methaDONE HCL 10 MG TABLET (FOR DETOX USE ONLY) PO ONE (10:00)
[2022-05-24] MEDS: METHOCARBAMOL 500 MG TABLET PO PRN ×2 (10:00→22:07)
[2022-05-24] MEDS: PRENATAL VITAMINS W/ FOLIC ACID TABLET (FP) PO SCH (10:01)
[2022-05-24] MEDS ORDERED: SUVOREXANT 10 MG TABLET PO PRN (22:00)
[2022-05-24] MEDS: QUEtiapine FUMARATE 50 MG TABLET PO SCH (22:06)
[2022-05-24] MEDS: THIAMINE HCL 100 MG TABLET (FP) PO SCH (22:06)
[2022-05-25 09:28] VITALS: BP 108/64; PULSE 75; RESP 16; TEMP 97.3
[2022-05-25] MEDS: PRENATAL VITAMINS W/ FOLIC ACID TABLET (FP) PO SCH (10:07)
== END 2022-05-25 10:16 | disposition home or self-care (01) | DRG 773 ==
LOC: YASAS 13:12 → Y3N 16:50
PROVIDERS: ADMIT Allergy & Immunology; ATTEND Surgery
PROC: HZ2ZZZZ Detoxification Services for Substance Abuse Treatment (ICD-10-PCS; principal; 2022-05-20)
DX: F11.23 Opioid dependence with withdrawal (principal); F10.230 Alcohol dependence with withdrawal, uncomplicated; F14.20 Cocaine dependence, uncomplicated; F17.210 Nicotine dependence, cigarettes, uncomplicated; F19.24 Other psychoactive substance dependence with psychoactive substance-induced mood disorder; F32.A Depression, unspecified; F41.9 Anxiety disorder, unspecified; E78.5 Hyperlipidemia, unspecified; G47.00 Insomnia, unspecified; Z62.810 Personal history of physical and sexual abuse in childhood; Z91.199 Patient's noncompliance with other medical treatment and regimen due to unspecified reason
CPT/HCPCS: 36415; 80053; 81003; 85027; 86780; C9803-CS; Q0162; U0003; U0005

== ENCOUNTER 2023-05-09 14:31 | Inpatient (IN) | payer OTHER ==
[2023-05-09 16:06] VITALS: BMI 31.6
[2023-05-09] MEDS ORDERED: LOPERAMIDE HCL 2 MG CAPSULE PO PRN (17:20)
[2023-05-09] MEDS ORDERED: BISMUTH SUBSALICYLATE 524 MG/30 ML PO PRN (17:20)
[2023-05-09] MEDS ORDERED: guaiFENesin 600 MG TABLET.ER (FP) PO PRN (17:20)
[2023-05-09] MEDS ORDERED: DICYCLOMINE HCL 10 MG CAPSULE PO PRN (17:20)
[2023-05-09] MEDS ORDERED: NICOTINE POLACRILEX 2 MG GUM BUC PRN (17:20)
[2023-05-09] MEDS ORDERED: MAGNESIUM HYDROX 2400MG/30ML ORAL SUSPENSION 30 ML CUP PO PRN (17:20)
[2023-05-09] MEDS ORDERED: P-EPHED 60MG/TRIPROLIDI 2.5MG TABLET PO PRN (17:20)
[2023-05-09] MEDS ORDERED: ONDANSETRON *ODT* 4 MG TABLET SL PRN (17:20)
[2023-05-09] MEDS ORDERED: BENZOCAINE/MENTHOL (CHLORASEPTIC ) LOZENGE MM PRN (17:20)
[2023-05-09] MEDS ORDERED: NALOXONE HCL 0.4 MG/ML VIAL IM PRN (17:20)
[2023-05-09] MEDS ORDERED: IBUPROFEN 400 MG TABLET (FP) PO PRN (17:20)
[2023-05-09] MEDS ORDERED: MAG HYDROX/AL HYDROX/SIMETH 30 ML UNIT-DOSE CUP PO PRN (17:20)
[2023-05-09] MEDS ORDERED: BENZONATATE 200 MG CAPSULE PO PRN (17:20)
[2023-05-09] MEDS ORDERED: POLYETHYLENE GLYCOL (HEALTHYLAX) 3350 17 GM PACKET PO PRN (17:20)
[2023-05-09] MEDS ORDERED: NALOXONE HCL (KLOXXADO) 8 MG SPRAY NS PRN (17:20)
[2023-05-09] MEDS: hydrOXYzine PAMOATE 25 MG CAPSULE (FP) PO PRN (19:36)
[2023-05-09] MEDS: IBUPROFEN 600 MG TABLET (FP) PO PRN (19:38)
[2023-05-09] MEDS ORDERED: MELATONIN 5 MG TABLETS PO SCH (22:00)
[2023-05-09] MEDS: METHOCARBAMOL 500 MG TABLET PO PRN (22:36)
[2023-05-09] MEDS: THIAMINE HCL 100 MG TABLET (FP) PO SCH (22:37)
[2023-05-10] MEDS: ACETAMINOPHEN 325 MG TABLET (FP) PO PRN ×2 (00:52→09:12)
[2023-05-10] MEDS ORDERED: hydrOXYzine PAMOATE 25 MG CAPSULE (FP) PO ONE (01:47)
[2023-05-10] MEDS ORDERED: cloNIDine HCL 0.1 MG TABLET PO ONE (01:53)
[2023-05-10] MEDS ORDERED: methaDONE HCL 10 MG TABLET (FOR DETOX USE ONLY) PO ONE (04:37)
[2023-05-10] MEDS ORDERED: cloNIDine HCL 0.1 MG TABLET PO PRN (04:37)
[2023-05-10] MEDS: chlordiazePOXIDE HCL 25 MG CAPSULE PO SCH ×4 (05:18→22:10)
[2023-05-10] MEDS: METHOCARBAMOL 500 MG TABLET PO PRN ×3 (05:28→22:10)
[2023-05-10] MEDS: hydrOXYzine PAMOATE 25 MG CAPSULE (FP) PO PRN ×2 (09:11→18:32)
[2023-05-10] MEDS: PRENATAL VITAMINS W/ FOLIC ACID TABLET (FP) PO SCH (10:10)
[2023-05-10 10:11] LABS: HEMATOCRIT 32.9 % (32.4-45.2); HEMOGLOBIN 11.1 GM/dL (10.7-15.3); MCH 30.4 pg (25.7-33.7); MCHC 33.7 g/dl (32.0-36.0); MEAN CELL VOLUME 90.3 fl (80-96); MEAN PLT VOLUME 7.9 fl (7.5-11.1); PLATELET COUNT 414 10^3/uL (134-434); RBC 3.65 M/mm3 (3.60-5.2); RDW 12.4 % (11.6-15.6); WHITE BLOOD COUNT 13.2 K/mm3 (4.0-10.0)
[2023-05-10 10:14] LABS: POTASSIUM 3.8 mmol/L (3.5-5.1)
[2023-05-10 10:27] LABS: ALBUMIN 2.9 g/dl (3.4-5.0); CALCIUM 8.6 mg/dL (8.5-10.1)
[2023-05-10 10:29] LABS: BLOOD UREA NITROGEN 9.2 mg/dL (7-18)
[2023-05-10 10:31] LABS: CREATININE 0.5 mg/dL (0.55-1.3); TOT PROT 6.2 g/dl (6.4-8.2)
[2023-05-10 10:33] LABS: BILIRUBIN,TOTAL 0.6 mg/dL (0.2-1)
[2023-05-10] MEDS ORDERED: FLU VACCINE (FLULAVAL) PF 60 MCG/0.5 ML SYRINGE 2023-2024 IM ONE (12:00)
[2023-05-10] MEDS: chlordiazePOXIDE HCL 25 MG CAPSULE PO PRN ×2 (14:31→19:06)
[2023-05-10] MEDS: IBUPROFEN 600 MG TABLET (FP) PO PRN (14:35)
[2023-05-10] MEDS ORDERED: SUVOREXANT 5 MG TABLET PO PRN (22:00)
[2023-05-10] MEDS: QUEtiapine FUMARATE 50 MG TABLET PO SCH (22:10)
[2023-05-10] MEDS: THIAMINE HCL 100 MG TABLET (FP) PO SCH (22:10)
[2023-05-11] MEDS ORDERED: chlordiazePOXIDE HCL 25 MG CAPSULE PO SCH (05:00)
[2023-05-11] MEDS: hydrOXYzine PAMOATE 25 MG CAPSULE (FP) PO PRN (05:41)
[2023-05-11] MEDS: METHOCARBAMOL 500 MG TABLET PO PRN (08:02)
[2023-05-11] MEDS: IBUPROFEN 600 MG TABLET (FP) PO PRN (08:48)
[2023-05-11] MEDS: PRENATAL VITAMINS W/ FOLIC ACID TABLET (FP) PO SCH (09:09)
[2023-05-11] MEDS: diazePAM 5 MG TABLET PO SCH ×3 (10:38→22:56)
[2023-05-11] MEDS ORDERED: diazePAM 5 MG TABLET PO PRN (14:20)
[2023-05-11] MEDS: ACETAMINOPHEN 325 MG TABLET (FP) PO PRN (17:11)
[2023-05-11] MEDS: SUVOREXANT 10 MG TABLET PO PRN (22:22)
[2023-05-11] MEDS: QUEtiapine FUMARATE 50 MG TABLET PO SCH (22:55)
[2023-05-11] MEDS: THIAMINE HCL 100 MG TABLET (FP) PO SCH (22:55)
[2023-05-12] MEDS ORDERED: chlordiazePOXIDE HCL 10 MG CAPSULE PO PRN
[2023-05-12] MEDS: IBUPROFEN 600 MG TABLET (FP) PO PRN ×3 (02:43→19:17)
[2023-05-12] MEDS: hydrOXYzine PAMOATE 25 MG CAPSULE (FP) PO PRN ×3 (02:47→23:48)
[2023-05-12] MEDS: METHOCARBAMOL 500 MG TABLET PO PRN ×2 (02:47→14:01)
[2023-05-12] MEDS ORDERED: chlordiazePOXIDE HCL 10 MG CAPSULE PO SCH (05:00)
[2023-05-12] MEDS: diazePAM 5 MG TABLET PO SCH ×4 (05:38→22:35)
[2023-05-12] MEDS ORDERED: methaDONE HCL 10 MG TABLET (FOR DETOX USE ONLY) PO ONE (10:00)
[2023-05-12] MEDS: PRENATAL VITAMINS W/ FOLIC ACID TABLET (FP) PO SCH (10:01)
[2023-05-12] MEDS ORDERED: diazePAM 5 MG TABLET PO PRN (10:24)
[2023-05-12] MEDS: ACETAMINOPHEN 325 MG TABLET (FP) PO PRN ×2 (17:27→23:48)
[2023-05-12] MEDS: CEPHALEXIN MONOHYDRATE 250 MG CAPSULE (FP) PO SCH ×2 (18:43→23:48)
[2023-05-12] MEDS ORDERED: BENZOCAINE 20 % GEL TUBE MM PRN (19:18)
[2023-05-12] MEDS: THIAMINE HCL 100 MG TABLET (FP) PO SCH (22:35)
[2023-05-12] MEDS: QUEtiapine FUMARATE 50 MG TABLET PO SCH (22:35)
[2023-05-12] MEDS: SUVOREXANT 10 MG TABLET PO PRN (22:36)
[2023-05-13] MEDS: METHOCARBAMOL 500 MG TABLET PO PRN (01:35)
[2023-05-13] MEDS: IBUPROFEN 600 MG TABLET (FP) PO PRN (01:38)
[2023-05-13 02:28] VITALS: RESP 18; TEMP 98.2
[2023-05-13] MEDS ORDERED: ACETAMINOPHEN 325 MG TABLET (FP) PO ONE (02:31)
[2023-05-13] MEDS ORDERED: LIDOCAINE VISCOUS 2% ORAL/TOP 15 ML UNIT-DOSE CUP MM PRN (02:41)
[2023-05-13] MEDS ORDERED: chlordiazePOXIDE HCL 10 MG CAPSULE PO SCH (05:00)
[2023-05-13] MEDS: diazePAM 5 MG TABLET PO SCH ×2 (05:18→13:05)
[2023-05-13] MEDS: CEPHALEXIN MONOHYDRATE 250 MG CAPSULE (FP) PO SCH ×2 (05:19→10:59)
[2023-05-13 09:29] VITALS: BP 117/67; PULSE 72
[2023-05-13] MEDS: PRENATAL VITAMINS W/ FOLIC ACID TABLET (FP) PO SCH (09:55)
[2023-05-14] MEDS ORDERED: chlordiazePOXIDE HCL 10 MG CAPSULE PO ONE (05:00)
[2023-05-14] MEDS ORDERED: diazePAM 5 MG TABLET PO SCH (06:00)
[2023-05-14] MEDS ORDERED: methaDONE HCL 10 MG TABLET (FOR DETOX USE ONLY) PO ONE (10:00)
[2023-05-15] MEDS ORDERED: diazePAM 5 MG TABLET PO ONE (06:00)
== END 2023-05-13 08:59 | disposition left against medical advice (07) | DRG 770 ==
LOC: YASAS 14:31 → Y6N 18:36
PROVIDERS: ADMIT Allergy & Immunology; ATTEND Surgery
PROC: HZ2ZZZZ Detoxification Services for Substance Abuse Treatment (ICD-10-PCS; principal; 2023-05-09)
DX: F11.23 Opioid dependence with withdrawal (principal); F10.230 Alcohol dependence with withdrawal, uncomplicated; F14.10 Cocaine abuse, uncomplicated; F12.10 Cannabis abuse, uncomplicated; F17.210 Nicotine dependence, cigarettes, uncomplicated; F19.282 Other psychoactive substance dependence with psychoactive substance-induced sleep disorder; F19.280 Other psychoactive substance dependence with psychoactive substance-induced anxiety disorder; F19.24 Other psychoactive substance dependence with psychoactive substance-induced mood disorder; E78.5 Hyperlipidemia, unspecified; K08.89 Other specified disorders of teeth and supporting structures; Z62.810 Personal history of physical and sexual abuse in childhood
CPT/HCPCS: 36415; 80053; 81025; 85027; 86780; 87635; 90686; G0008; Q0162

== ENCOUNTER 2023-07-13 16:53 | Inpatient (IN) | payer OTHER ==
[2023-07-13 18:07] VITALS: BMI 29.7
[2023-07-13] MEDS ORDERED: TRIMETHOBENZAMIDE HCL 200MG/2ML INJ IM ONE ×2 (18:27→18:43)
[2023-07-13] MEDS ORDERED: IBUPROFEN 400 MG TABLET (FP) PO PRN (19:12)
[2023-07-13] MEDS ORDERED: DICYCLOMINE HCL 10 MG CAPSULE PO PRN (19:12)
[2023-07-13] MEDS ORDERED: NALOXONE HCL 0.4 MG/ML VIAL IM PRN (19:12)
[2023-07-13] MEDS ORDERED: NALOXONE HCL (KLOXXADO) 8 MG SPRAY NS PRN (19:12)
[2023-07-13] MEDS ORDERED: LOPERAMIDE HCL 2 MG CAPSULE PO PRN (19:12)
[2023-07-13] MEDS ORDERED: IBUPROFEN 600 MG TABLET (FP) PO PRN (19:12)
[2023-07-13] MEDS ORDERED: MAG HYDROX/AL HYDROX/SIMETH 30 ML UNIT-DOSE CUP PO PRN (19:12)
[2023-07-13] MEDS ORDERED: guaiFENesin 600 MG TABLET.ER (FP) PO PRN (19:12)
[2023-07-13] MEDS ORDERED: BENZOCAINE/MENTHOL (CHLORASEPTIC ) LOZENGE MM PRN (19:12)
[2023-07-13] MEDS ORDERED: NICOTINE POLACRILEX 2 MG GUM BUC PRN (19:12)
[2023-07-13] MEDS ORDERED: ACETAMINOPHEN 325 MG TABLET (FP) PO PRN (19:12)
[2023-07-13] MEDS ORDERED: BISMUTH SUBSALICYLATE 524 MG/30 ML PO PRN (19:12)
[2023-07-13] MEDS ORDERED: MAGNESIUM HYDROX 2400MG/30ML ORAL SUSPENSION 30 ML CUP PO PRN (19:12)
[2023-07-13] MEDS ORDERED: BENZONATATE 200 MG CAPSULE PO PRN (19:12)
[2023-07-13] MEDS ORDERED: P-EPHED 60MG/TRIPROLIDI 2.5MG TABLET PO PRN (19:12)
[2023-07-13] MEDS ORDERED: POLYETHYLENE GLYCOL (HEALTHYLAX) 3350 17 GM PACKET PO PRN (19:12)
[2023-07-13] MEDS ORDERED: ONDANSETRON *ODT* 4 MG TABLET SL PRN (19:12)
[2023-07-13] MEDS ORDERED: cloNIDine HCL 0.1 MG TABLET PO PRN (19:16)
[2023-07-13] MEDS ORDERED: methaDONE HCL 10 MG TABLET (FOR DETOX USE ONLY) ONE (19:38)
[2023-07-13] MEDS ORDERED: methaDONE HCL 10 MG TABLET (FOR DETOX USE ONLY) PO ONE (20:00)
[2023-07-13] MEDS ORDERED: MELATONIN 5 MG TABLETS PO SCH (22:00)
[2023-07-13] MEDS ORDERED: QUEtiapine FUMARATE 25 MG TABLET PO PRN (22:00)
[2023-07-13] MEDS: diazePAM 5 MG TABLET PO SCH (22:04)
[2023-07-13] MEDS: THIAMINE HCL 100 MG TABLET (FP) PO SCH (22:04)
[2023-07-14] MEDS: diazePAM 5 MG TABLET PO SCH ×4 (05:37→22:10)
[2023-07-14] MEDS: METHOCARBAMOL 500 MG TABLET PO PRN (08:42)
[2023-07-14] MEDS ORDERED: TRIMETHOBENZAMIDE HCL 200MG/2ML INJ IM ONE (09:29)
[2023-07-14] MEDS: PRENATAL VITAMINS W/ FOLIC ACID TABLET (FP) PO SCH (10:07)
[2023-07-14 10:21] LABS: HEMATOCRIT 39.5 % (32.4-45.2); HEMOGLOBIN 13.1 GM/dL (10.7-15.3); MCHC 33.2 g/dl (32.0-36.0); MEAN CELL VOLUME 93.3 fl (80-96); MEAN PLT VOLUME 7.7 fl (7.5-11.1); PLATELET COUNT 346 10^3/uL (134-434); RBC 4.23 M/mm3 (3.60-5.2); RDW 14.2 % (11.6-15.6); WHITE BLOOD COUNT 9.4 K/mm3 (4.0-10.0)
[2023-07-14 10:25] LABS: CHLORIDE 105 mmol/L (98-107); POTASSIUM 3.9 mmol/L (3.5-5.1); SODIUM 139 mmol/L (136-145)
[2023-07-14 10:28] LABS: ALBUMIN 3.8 g/dl (3.4-5.0); ANION GAP 6 mmol/L (4-13); BLOOD UREA NITROGEN 15.6 mg/dL (7-18); CALCIUM 9.1 mg/dL (8.5-10.1); CO2 28 mmol/L (21-32); GLUCOSE,RANDOM 104 mg/dL (74-106)
[2023-07-14 10:31] LABS: CREATININE 0.6 mg/dL (0.55-1.3); SGOT/AST 13 U/L (15-37); SGPT/ALT 22 U/L (13-61)
[2023-07-14 10:32] LABS: BILIRUBIN,TOTAL 0.4 mg/dL (0.2-1); TOT PROT 6.8 g/dl (6.4-8.2)
[2023-07-14 10:34] LABS: ALK PHOS 79 U/L (45-117)
[2023-07-14] MEDS: diazePAM 5 MG TABLET PO PRN (12:32)
[2023-07-14] MEDS: hydrOXYzine PAMOATE 25 MG CAPSULE (FP) PO PRN (17:06)
[2023-07-14] MEDS: SUVOREXANT 10 MG TABLET PO PRN (22:09)
[2023-07-14] MEDS: QUEtiapine FUMARATE 50 MG TABLET PO SCH (22:10)
[2023-07-14] MEDS: THIAMINE HCL 100 MG TABLET (FP) PO SCH (22:10)
[2023-07-15] MEDS ORDERED: LORazepam 0.5 MG TABLET PO PRN
[2023-07-15] MEDS ORDERED: diazePAM 5 MG TABLET PO SCH (06:00)
[2023-07-15] MEDS: diazePAM 5 MG TABLET PO PRN (07:57)
[2023-07-15] MEDS ORDERED: methaDONE HCL 10 MG TABLET (FOR DETOX USE ONLY) PO ONE (10:00)
[2023-07-15] MEDS: PRENATAL VITAMINS W/ FOLIC ACID TABLET (FP) PO SCH (10:02)
[2023-07-15] MEDS: hydrOXYzine PAMOATE 25 MG CAPSULE (FP) PO PRN ×3 (10:02→22:20)
[2023-07-15] MEDS: METHOCARBAMOL 500 MG TABLET PO PRN ×2 (11:06→17:45)
[2023-07-15] MEDS: LORazepam 1 MG TABLET PO SCH ×3 (11:06→22:09)
[2023-07-15] MEDS: QUEtiapine FUMARATE 50 MG TABLET PO SCH (22:09)
[2023-07-15] MEDS: THIAMINE HCL 100 MG TABLET (FP) PO SCH (22:09)
[2023-07-15] MEDS: SUVOREXANT 10 MG TABLET PO PRN (22:11)
[2023-07-16] MEDS: LORazepam 0.5 MG TABLET PO SCH ×4 (05:32→22:18)
[2023-07-16] MEDS ORDERED: diazePAM 5 MG TABLET PO SCH (06:00)
[2023-07-16] MEDS: PRENATAL VITAMINS W/ FOLIC ACID TABLET (FP) PO SCH (10:07)
[2023-07-16] MEDS: METHOCARBAMOL 500 MG TABLET PO PRN ×2 (11:07→22:23)
[2023-07-16] MEDS: FERROUS SO4 325 MG TABLET (FP) PO SCH ×2 (11:09→22:16)
[2023-07-16] MEDS: hydrOXYzine PAMOATE 25 MG CAPSULE (FP) PO PRN (12:35)
[2023-07-16] MEDS: OMEGA-3 ACID ETHYL ESTERS (FATTY-ACIDS) 1 GM CAPSULE (FP) PO SCH ×2 (13:12→22:16)
[2023-07-16] MEDS: QUEtiapine FUMARATE 50 MG TABLET PO SCH (22:17)
[2023-07-16] MEDS: THIAMINE HCL 100 MG TABLET (FP) PO SCH (22:17)
[2023-07-17] MEDS: SUVOREXANT 15 MG TABLET PO PRN ×2 (00:39→21:33)
[2023-07-17] MEDS ORDERED: LORazepam 0.5 MG TABLET PO ONE (05:00)
[2023-07-17] MEDS ORDERED: diazePAM 5 MG TABLET PO ONE (06:00)
[2023-07-17] MEDS ORDERED: methaDONE HCL 10 MG TABLET (FOR DETOX USE ONLY) PO ONE (10:00)
[2023-07-17] MEDS: PRENATAL VITAMINS W/ FOLIC ACID TABLET (FP) PO SCH (10:42)
[2023-07-17] MEDS: OMEGA-3 ACID ETHYL ESTERS (FATTY-ACIDS) 1 GM CAPSULE (FP) PO SCH ×2 (10:42→22:10)
[2023-07-17] MEDS: hydrOXYzine PAMOATE 25 MG CAPSULE (FP) PO PRN ×2 (10:42→18:48)
[2023-07-17] MEDS: FERROUS SO4 325 MG TABLET (FP) PO SCH ×2 (10:42→22:12)
[2023-07-17] MEDS: THIAMINE HCL 100 MG TABLET (FP) PO SCH (22:10)
[2023-07-17] MEDS: QUEtiapine FUMARATE 50 MG TABLET PO SCH (22:10)
[2023-07-18] MEDS: PRENATAL VITAMINS W/ FOLIC ACID TABLET (FP) PO SCH (10:10)
[2023-07-18] MEDS: FERROUS SO4 325 MG TABLET (FP) PO SCH (10:10)
[2023-07-18] MEDS: OMEGA-3 ACID ETHYL ESTERS (FATTY-ACIDS) 1 GM CAPSULE (FP) PO SCH (10:11)
[2023-07-18] MEDS: hydrOXYzine PAMOATE 25 MG CAPSULE (FP) PO PRN (10:14)
[2023-07-18] MEDS: METHOCARBAMOL 500 MG TABLET PO PRN (13:57)
[2023-07-18] MEDS ORDERED: hydrOXYzine PAMOATE 25 MG CAPSULE (FP) PO ONE (15:15)
[2023-07-18 17:43] VITALS: BP 122/72; PULSE 73; RESP 17; TEMP 98.3
== END 2023-07-18 17:35 | disposition other institution (70) | DRG 773 ==
LOC: YASAS 16:53 → Y6N 19:35
PROVIDERS: ADMIT Allergy & Immunology; ATTEND Surgery
PROC: HZ2ZZZZ Detoxification Services for Substance Abuse Treatment (ICD-10-PCS; principal; 2023-07-13)
DX: F11.23 Opioid dependence with withdrawal (principal); F10.230 Alcohol dependence with withdrawal, uncomplicated; F12.20 Cannabis dependence, uncomplicated; F17.210 Nicotine dependence, cigarettes, uncomplicated; F41.9 Anxiety disorder, unspecified; G47.00 Insomnia, unspecified; Z62.810 Personal history of physical and sexual abuse in childhood
CPT/HCPCS: 36415; 80053; 80307; 81025; 85027; 86780; 87635; 93005; 93010; Q0162

== ENCOUNTER 2023-07-18 17:43 | Inpatient (IN) | payer OTHER ==
[2023-07-18] MEDS ORDERED: IBUPROFEN 600 MG TABLET (FP) PO PRN (18:58)
[2023-07-18] MEDS ORDERED: IBUPROFEN 400 MG TABLET (FP) PO PRN (18:58)
[2023-07-18] MEDS ORDERED: POLYETHYLENE GLYCOL (HEALTHYLAX) 3350 17 GM PACKET PO PRN (18:58)
[2023-07-18] MEDS ORDERED: MAG HYDROX/AL HYDROX/SIMETH 30 ML UNIT-DOSE CUP PO PRN (18:58)
[2023-07-18] MEDS ORDERED: LOPERAMIDE HCL 2 MG CAPSULE PO PRN (18:58)
[2023-07-18] MEDS ORDERED: METHOCARBAMOL 500 MG TABLET PO PRN (18:58)
[2023-07-18] MEDS ORDERED: guaiFENesin 600 MG TABLET.ER (FP) PO PRN (18:58)
[2023-07-18] MEDS ORDERED: BENZONATATE 200 MG CAPSULE PO PRN (18:58)
[2023-07-18] MEDS ORDERED: BENZOCAINE/MENTHOL (CHLORASEPTIC ) LOZENGE MM PRN (18:58)
[2023-07-18] MEDS ORDERED: MAGNESIUM HYDROX 2400MG/30ML ORAL SUSPENSION 30 ML CUP PO PRN (18:58)
[2023-07-18] MEDS ORDERED: P-EPHED 60MG/TRIPROLIDI 2.5MG TABLET PO PRN (18:58)
[2023-07-18] MEDS ORDERED: COLLOIDAL OATMEAL 1 BAR EACH TP PRN (18:58)
[2023-07-18] MEDS: cloNIDine HCL 0.1 MG TABLET PO PRN (19:38)
[2023-07-18] MEDS: MELATONIN 5 MG TABLETS PO SCH (21:33)
[2023-07-18] MEDS: THIAMINE HCL 100 MG TABLET (FP) PO SCH (21:33)
[2023-07-18] MEDS ORDERED: SUVOREXANT 5 MG TABLET PO ONE (22:00)
[2023-07-18] MEDS ORDERED: SUVOREXANT 15 MG TABLET PO ONE (22:50)
[2023-07-19] MEDS: PRENATAL VITAMINS W/ FOLIC ACID TABLET (FP) PO SCH (09:40)
[2023-07-19] MEDS ORDERED: TUBERCULIN PPD 5 TU/0.1ML VIAL ID ONE (10:52)
[2023-07-19] MEDS: cloNIDine HCL 0.1 MG TABLET PO PRN (10:53)
[2023-07-19] MEDS: GABAPENTIN 400 MG CAPSULE PO SCH ×2 (14:49→21:33)
[2023-07-19] MEDS: THIAMINE HCL 100 MG TABLET (FP) PO SCH (21:33)
[2023-07-19] MEDS: MELATONIN 5 MG TABLETS PO SCH (21:33)
[2023-07-19] MEDS: SUVOREXANT 15 MG TABLET PO PRN (21:34)
[2023-07-19] MEDS: QUEtiapine FUMARATE 50 MG TABLET PO SCH (22:05)
[2023-07-20] MEDS: GABAPENTIN 400 MG CAPSULE PO SCH ×3 (06:40→21:27)
[2023-07-20] MEDS: PRENATAL VITAMINS W/ FOLIC ACID TABLET (FP) PO SCH (10:20)
[2023-07-20] MEDS: OMEGA-3 ACID ETHYL ESTERS (FATTY-ACIDS) 1 GM CAPSULE (FP) PO SCH ×2 (12:40→21:27)
[2023-07-20] MEDS: FOLIC ACID 1 MG TABLET (FP) PO SCH (12:40)
[2023-07-20] MEDS: FERROUS SO4 325 MG TABLET (FP) PO SCH (12:40)
[2023-07-20] MEDS: BACLOFEN 10 MG TABLET (FP) PO SCH ×2 (13:31→21:26)
[2023-07-20] MEDS: MELATONIN 5 MG TABLETS PO SCH (21:27)
[2023-07-20] MEDS: THIAMINE HCL 100 MG TABLET (FP) PO SCH (21:28)
[2023-07-20] MEDS: QUEtiapine FUMARATE 50 MG TABLET PO SCH (21:29)
[2023-07-20] MEDS: SUVOREXANT 15 MG TABLET PO PRN (21:33)
[2023-07-21] MEDS: GABAPENTIN 400 MG CAPSULE PO SCH ×3 (06:41→21:25)
[2023-07-21] MEDS: OMEGA-3 ACID ETHYL ESTERS (FATTY-ACIDS) 1 GM CAPSULE (FP) PO SCH ×2 (10:29→21:26)
[2023-07-21] MEDS: PRENATAL VITAMINS W/ FOLIC ACID TABLET (FP) PO SCH (10:29)
[2023-07-21] MEDS: FOLIC ACID 1 MG TABLET (FP) PO SCH (10:30)
[2023-07-21] MEDS: FERROUS SO4 325 MG TABLET (FP) PO SCH (10:30)
[2023-07-21] MEDS: BACLOFEN 10 MG TABLET (FP) PO SCH ×2 (10:30→21:26)
[2023-07-21] MEDS: BUPRENORPHINE/NALOXONE 4 MG/1 MG FILM PACKET SL SCH (11:53)
[2023-07-21] MEDS: MELATONIN 5 MG TABLETS PO SCH (21:25)
[2023-07-21] MEDS: THIAMINE HCL 100 MG TABLET (FP) PO SCH (21:26)
[2023-07-21] MEDS: SUVOREXANT 15 MG TABLET PO PRN (22:13)
[2023-07-21] MEDS: ACETAMINOPHEN 325 MG TABLET (FP) PO PRN (22:13)
[2023-07-21] MEDS: QUEtiapine FUMARATE 50 MG TABLET PO SCH (22:13)
[2023-07-22] MEDS: GABAPENTIN 400 MG CAPSULE PO SCH ×3 (07:02→21:29)
[2023-07-22] MEDS: PRENATAL VITAMINS W/ FOLIC ACID TABLET (FP) PO SCH (09:46)
[2023-07-22] MEDS: BUPRENORPHINE/NALOXONE 4 MG/1 MG FILM PACKET SL SCH (09:46)
[2023-07-22] MEDS: FERROUS SO4 325 MG TABLET (FP) PO SCH (09:46)
[2023-07-22] MEDS: OMEGA-3 ACID ETHYL ESTERS (FATTY-ACIDS) 1 GM CAPSULE (FP) PO SCH ×2 (09:46→21:29)
[2023-07-22] MEDS: BACLOFEN 10 MG TABLET (FP) PO SCH ×2 (09:46→21:29)
[2023-07-22] MEDS: FOLIC ACID 1 MG TABLET (FP) PO SCH (09:46)
[2023-07-22] MEDS: cloNIDine HCL 0.1 MG TABLET PO PRN (10:55)
[2023-07-22] MEDS: THIAMINE HCL 100 MG TABLET (FP) PO SCH (21:29)
[2023-07-22] MEDS: SUVOREXANT 15 MG TABLET PO PRN (22:00)
[2023-07-22] MEDS: QUEtiapine FUMARATE 50 MG TABLET PO SCH (22:37)
[2023-07-22] MEDS: MELATONIN 5 MG TABLETS PO SCH (22:38)
[2023-07-23] MEDS: GABAPENTIN 400 MG CAPSULE PO SCH ×3 (07:02→21:17)
[2023-07-23] MEDS: ACETAMINOPHEN 325 MG TABLET (FP) PO PRN ×2 (07:54→20:08)
[2023-07-23] MEDS: FOLIC ACID 1 MG TABLET (FP) PO SCH (09:51)
[2023-07-23] MEDS: BACLOFEN 10 MG TABLET (FP) PO SCH ×2 (09:51→21:18)
[2023-07-23] MEDS: PRENATAL VITAMINS W/ FOLIC ACID TABLET (FP) PO SCH (09:51)
[2023-07-23] MEDS: OMEGA-3 ACID ETHYL ESTERS (FATTY-ACIDS) 1 GM CAPSULE (FP) PO SCH ×2 (09:51→21:18)
[2023-07-23] MEDS: BUPRENORPHINE/NALOXONE 4 MG/1 MG FILM PACKET SL SCH (09:51)
[2023-07-23] MEDS: FERROUS SO4 325 MG TABLET (FP) PO SCH (11:00)
[2023-07-23] MEDS: cloNIDine HCL 0.1 MG TABLET PO PRN (11:41)
[2023-07-23] MEDS: MELATONIN 5 MG TABLETS PO SCH (21:16)
[2023-07-23] MEDS: THIAMINE HCL 100 MG TABLET (FP) PO SCH (21:18)
[2023-07-23] MEDS: QUEtiapine FUMARATE 50 MG TABLET PO SCH (21:19)
[2023-07-23] MEDS: SUVOREXANT 15 MG TABLET PO PRN (22:22)
[2023-07-24] MEDS: GABAPENTIN 400 MG CAPSULE PO SCH ×3 (06:45→21:32)
[2023-07-24] MEDS: PRENATAL VITAMINS W/ FOLIC ACID TABLET (FP) PO SCH (09:58)
[2023-07-24] MEDS: OMEGA-3 ACID ETHYL ESTERS (FATTY-ACIDS) 1 GM CAPSULE (FP) PO SCH ×2 (09:59→21:32)
[2023-07-24] MEDS: BACLOFEN 10 MG TABLET (FP) PO SCH (09:59)
[2023-07-24] MEDS: BUPRENORPHINE/NALOXONE 4 MG/1 MG FILM PACKET SL SCH (09:59)
[2023-07-24] MEDS: FERROUS SO4 325 MG TABLET (FP) PO SCH (10:42)
[2023-07-24] MEDS: FOLIC ACID 1 MG TABLET (FP) PO SCH (10:42)
[2023-07-24] MEDS ORDERED: ONDANSETRON *ODT* 4 MG TABLET SL PRN (12:19)
[2023-07-24] MEDS: BACLOFEN 10 MG TABLET (FP) PO PRN ×2 (17:44→21:37)
[2023-07-24] MEDS: SUVOREXANT 15 MG TABLET PO PRN (21:32)
[2023-07-24] MEDS: MELATONIN 5 MG TABLETS PO SCH (21:33)
[2023-07-24] MEDS: THIAMINE HCL 100 MG TABLET (FP) PO SCH (21:33)
[2023-07-24] MEDS: QUEtiapine FUMARATE 50 MG TABLET PO SCH (21:33)
[2023-07-25] MEDS: GABAPENTIN 400 MG CAPSULE PO SCH (06:57)
[2023-07-25 07:01] VITALS: BP 122/75; PULSE 68; RESP 17; TEMP 97.6
[2023-07-25] MEDS ORDERED: BUPRENORPHINE/NALOXONE 2 MG/0.5 MG FILM PACKET SL SCH (10:00)
[2023-07-25] MEDS: OMEGA-3 ACID ETHYL ESTERS (FATTY-ACIDS) 1 GM CAPSULE (FP) PO SCH (10:13)
[2023-07-25] MEDS: FOLIC ACID 1 MG TABLET (FP) PO SCH (10:14)
[2023-07-25] MEDS: FERROUS SO4 325 MG TABLET (FP) PO SCH (10:14)
[2023-07-25] MEDS: PRENATAL VITAMINS W/ FOLIC ACID TABLET (FP) PO SCH (10:14)
== END 2023-07-25 10:30 | disposition left against medical advice (07) | DRG 770 ==
LOC: YASAS 17:43 → Y5N 17:51
PROVIDERS: ADMIT Allergy & Immunology; ATTEND Psychiatry & Neurology Pain Medicine
PROC: HZ42ZZZ Group Counseling for Substance Abuse Treatment, Cognitive-Behavioral (ICD-10-PCS; principal; 2023-07-18)
DX: F11.20 Opioid dependence, uncomplicated (principal); F10.20 Alcohol dependence, uncomplicated; F17.210 Nicotine dependence, cigarettes, uncomplicated; F19.282 Other psychoactive substance dependence with psychoactive substance-induced sleep disorder; F41.9 Anxiety disorder, unspecified; F32.A Depression, unspecified; E78.5 Hyperlipidemia, unspecified; F91.8 Other conduct disorders; Z91.199 Patient's noncompliance with other medical treatment and regimen due to unspecified reason
CPT/HCPCS: 81025; J0475

== ENCOUNTER 2024-02-27 14:26 | Inpatient (IN) | payer OTHER ==
[2024-02-27 15:11] VITALS: BMI 32.9
[2024-02-27] MEDS ORDERED: LOPERAMIDE HCL 2 MG CAPSULE PO PRN (15:28)
[2024-02-27] MEDS ORDERED: NALOXONE HCL 0.4 MG/ML VIAL IM PRN (15:28)
[2024-02-27] MEDS ORDERED: BENZONATATE 200 MG CAPSULE PO PRN (15:28)
[2024-02-27] MEDS ORDERED: guaiFENesin 600 MG TABLET.ER (FP) PO PRN (15:28)
[2024-02-27] MEDS ORDERED: ACETAMINOPHEN 325 MG TABLET (FP) PO PRN (15:28)
[2024-02-27] MEDS ORDERED: NICOTINE POLACRILEX 2 MG LOZENGE BC PRN (15:28)
[2024-02-27] MEDS ORDERED: POLYETHYLENE GLYCOL (HEALTHYLAX) 3350 17 GM PACKET PO PRN (15:28)
[2024-02-27] MEDS ORDERED: NALOXONE (NARCAN) HCL 4 MG/0.1 ML SPRAY NS PRN (15:28)
[2024-02-27] MEDS ORDERED: NICOTINE POLACRILEX 2 MG GUM BUC PRN (15:28)
[2024-02-27] MEDS ORDERED: MAGNESIUM HYDROX 2400MG/30ML ORAL SUSPENSION 30 ML CUP PO PRN (15:28)
[2024-02-27] MEDS ORDERED: IBUPROFEN 400 MG TABLET (FP) PO PRN (15:28)
[2024-02-27] MEDS ORDERED: BENZOCAINE/MENTHOL (CHLORASEPTIC ) LOZENGE MM PRN (15:28)
[2024-02-27] MEDS ORDERED: BISMUTH SUBSALICYLATE 262 MG/15 ML BTL PO PRN (15:28)
[2024-02-27] MEDS ORDERED: diazePAM 5 MG TABLET PO ONE (15:31)
[2024-02-27] MEDS ORDERED: diazePAM 5 MG TABLET PO PRN ×2 (15:31→15:33)
[2024-02-27] MEDS ORDERED: cloNIDine HCL 0.1 MG TABLET PO PRN (15:33)
[2024-02-27] MEDS ORDERED: TRIMETHOBENZAMIDE HCL 200MG/2ML INJ IM ONE (15:52)
[2024-02-27] MEDS: TRIMETHOBENZAMIDE HCL 200MG/2ML INJ IM ONE (15:54)
[2024-02-27] MEDS ORDERED: methaDONE HCL 10 MG TABLET (FOR DETOX USE ONLY) ONE (16:09)
[2024-02-27] MEDS: methaDONE HCL 10 MG TABLET (FOR DETOX USE ONLY) PO ONE (16:11)
[2024-02-27] MEDS ORDERED: diazePAM 5 MG TABLET ONE (16:51)
[2024-02-27] MEDS ORDERED: diazePAM 5 MG TABLET PO SCH ×2 (17:00)
[2024-02-27] MEDS: diazePAM 5 MG TABLET PO SCH (17:04)
[2024-02-27] MEDS: PRENATAL VITAMINS W/ FOLIC ACID TABLET (FP) PO SCH (18:30)
[2024-02-27] MEDS: NICOTINE 14 MG/24 HOURS TOPICAL PATCH TD SCH (18:31)
[2024-02-27] MEDS: THIAMINE 100 MG TABLET PO SCH (22:19)
[2024-02-27] MEDS: ONDANSETRON *ODT* 4 MG TABLET SL PRN (22:19)
[2024-02-27] MEDS: MELATONIN 5 MG TABLETS PO SCH (22:21)
[2024-02-27] MEDS: METHOCARBAMOL 500 MG TABLET PO PRN (22:21)
[2024-02-28] MEDS: TRIMETHOBENZAMIDE HCL 200MG/2ML INJ IM PRN (10:32)
[2024-02-28] MEDS: FAMOTIDINE 20 MG TABLET PO SCH (10:32)
[2024-02-28 12:02] LABS: HEMATOCRIT 40.2 % (32.4-45.2); HEMOGLOBIN 13.6 GM/dL (10.7-15.3); MCH 30.7 pg (25.7-33.7); MCHC 33.9 g/dl (32.0-36.0); MEAN CELL VOLUME 90.5 fl (80-96); MEAN PLT VOLUME 8.5 fl (7.5-11.1); PLATELET COUNT 266 10^3/uL (134-434); RBC 4.44 M/mm3 (3.60-5.2); RDW 12.3 % (11.6-15.6); WHITE BLOOD COUNT 10.1 K/mm3 (4.0-10.0)
[2024-02-28] MEDS: GABAPENTIN 400 MG CAPSULE PO SCH (13:33)
[2024-02-28] MEDS: diazePAM 5 MG TABLET PO PRN (13:59)
[2024-02-28 14:14] LABS: CHLORIDE 107 mmol/L (98-107); POTASSIUM 3.9 mmol/L (3.5-5.1); SODIUM 140 mmol/L (136-145)
[2024-02-28 14:16] LABS: BLOOD UREA NITROGEN 15.3 mg/dL (7-18); CALCIUM 9.1 mg/dL (8.5-10.1)
[2024-02-28 14:17] LABS: ANION GAP 6 mmol/L (4-13); CO2 26 mmol/L (21-32); GLUCOSE,RANDOM 103 mg/dL (74-106)
[2024-02-28 14:19] LABS: SGPT/ALT 27 U/L (13-61)
[2024-02-28 14:20] LABS: CREATININE 0.7 mg/dL (0.55-1.3); SGOT/AST 24 U/L (15-37)
[2024-02-28 14:21] LABS: BILIRUBIN,TOTAL 0.4 mg/dL (0.2-1)
[2024-02-28 14:22] LABS: ALK PHOS 76 U/L (45-117)
[2024-02-28 14:43] LABS: HIV INTERPRETATION NEGATIVE (NEGATIVE)
[2024-02-28] MEDS: traZODone HCL 50 MG TABLET (FP) PO SCH (22:15)
[2024-02-28] MEDS: DICYCLOMINE HCL 10 MG CAPSULE PO PRN (22:17)
[2024-02-29] MEDS ORDERED: diazePAM 5 MG TABLET PO SCH ×2 (06:00)
[2024-02-29] MEDS: diazePAM 5 MG TABLET PO SCH (06:33)
[2024-02-29] MEDS: SUCRALFATE 1 GM TABLET (FP) PO SCH (07:02)
[2024-02-29] MEDS: methaDONE HCL 10 MG TABLET (FOR DETOX USE ONLY) PO ONE (09:53)
[2024-02-29] MEDS: IBUPROFEN 600 MG TABLET (FP) PO PRN (11:45)
[2024-02-29] MEDS: SUVOREXANT 10 MG TABLET PO PRN (23:20)
[2024-03-01] MEDS ORDERED: diazePAM 5 MG TABLET PO SCH ×2 (06:00)
[2024-03-01] MEDS: diazePAM 5 MG TABLET PO SCH (06:09)
[2024-03-01] MEDS: hydrOXYzine PAMOATE 25 MG CAPSULE (FP) PO PRN (14:23)
[2024-03-01] MEDS: MAG HYDROX/AL HYDROX/SIMETH 30 ML UNIT-DOSE CUP PO PRN (21:27)
[2024-03-01] MEDS: SUVOREXANT 15 MG TABLET PO PRN (21:28)
[2024-03-02] MEDS ORDERED: diazePAM 5 MG TABLET PO ONE ×2 (06:00)
[2024-03-02] MEDS: diazePAM 5 MG TABLET PO ONE (06:08)
[2024-03-02 06:32] VITALS: RESP 16
[2024-03-02 09:27] VITALS: BP 123/66; PULSE 74; TEMP 97.7
[2024-03-02] MEDS: methaDONE HCL 10 MG TABLET (FOR DETOX USE ONLY) PO ONE (10:04)
== END 2024-03-02 13:08 | disposition home or self-care (01) | DRG 773 ==
LOC: YASAS 14:26 → Y6N 17:06
PROVIDERS: ADMIT Allergy & Immunology; ATTEND Surgery
PROC: HZ2ZZZZ Detoxification Services for Substance Abuse Treatment (ICD-10-PCS; principal; 2024-02-27)
DX: F11.23 Opioid dependence with withdrawal (principal); F10.230 Alcohol dependence with withdrawal, uncomplicated; F12.20 Cannabis dependence, uncomplicated; F17.210 Nicotine dependence, cigarettes, uncomplicated; F19.282 Other psychoactive substance dependence with psychoactive substance-induced sleep disorder; F19.280 Other psychoactive substance dependence with psychoactive substance-induced anxiety disorder; F19.24 Other psychoactive substance dependence with psychoactive substance-induced mood disorder; F42.9 Obsessive-compulsive disorder, unspecified; E78.5 Hyperlipidemia, unspecified; Z62.810 Personal history of physical and sexual abuse in childhood; Z91.410 Personal history of adult physical and sexual abuse; Z63.8 Other specified problems related to primary support group; Z63.0 Problems in relationship with spouse or partner
CPT/HCPCS: 36415; 80053; 80305; 80307; 81025; 85027; 86780; 86803; 87389; 93005; 93010; Q0162

== ENCOUNTER 2024-03-24 11:04 | Inpatient (IN) | payer OTHER ==
[2024-03-24 11:23] VITALS: BMI 31.9
[2024-03-24] MEDS ORDERED: TRIMETHOBENZAMIDE HCL 200MG/2ML INJ IM ONE (11:43)
[2024-03-24] MEDS: TRIMETHOBENZAMIDE HCL 200MG/2ML INJ IM ONE (11:50)
[2024-03-24] MEDS ORDERED: BENZOCAINE/MENTHOL (CHLORASEPTIC ) LOZENGE MM PRN (12:19)
[2024-03-24] MEDS ORDERED: DICYCLOMINE HCL 10 MG CAPSULE PO PRN (12:19)
[2024-03-24] MEDS ORDERED: NALOXONE HCL 0.4 MG/ML VIAL IM PRN (12:19)
[2024-03-24] MEDS ORDERED: MAGNESIUM HYDROX 2400MG/30ML ORAL SUSPENSION 30 ML CUP PO PRN (12:19)
[2024-03-24] MEDS ORDERED: BENZONATATE 200 MG CAPSULE PO PRN (12:19)
[2024-03-24] MEDS ORDERED: ONDANSETRON *ODT* 4 MG TABLET SL PRN (12:19)
[2024-03-24] MEDS ORDERED: POLYETHYLENE GLYCOL (HEALTHYLAX) 3350 17 GM PACKET PO PRN (12:19)
[2024-03-24] MEDS ORDERED: BISMUTH SUBSALICYLATE 524 MG/30 ML PO PRN (12:19)
[2024-03-24] MEDS ORDERED: NALOXONE (NARCAN) HCL 4 MG/0.1 ML SPRAY NS PRN (12:19)
[2024-03-24] MEDS ORDERED: IBUPROFEN 400 MG TABLET (FP) PO PRN (12:19)
[2024-03-24] MEDS ORDERED: LOPERAMIDE HCL 2 MG CAPSULE PO PRN (12:19)
[2024-03-24] MEDS ORDERED: guaiFENesin 600 MG TABLET.ER (FP) PO PRN (12:19)
[2024-03-24] MEDS ORDERED: IBUPROFEN 600 MG TABLET (FP) PO ONE (12:49)
[2024-03-24] MEDS ORDERED: methaDONE HCL 10 MG TABLET (FOR DETOX USE ONLY) ONE (12:49)
[2024-03-24] MEDS: methaDONE HCL 10 MG TABLET (FOR DETOX USE ONLY) PO ONE (12:56)
[2024-03-24] MEDS: IBUPROFEN 600 MG TABLET (FP) PO PRN (12:57)
[2024-03-24] MEDS ORDERED: hydrOXYzine PAMOATE 25 MG CAPSULE (FP) PO ONE (13:01)
[2024-03-24] MEDS: GABAPENTIN 400 MG CAPSULE PO SCH (15:36)
[2024-03-24] MEDS: METHOCARBAMOL 500 MG TABLET PO PRN (17:20)
[2024-03-24] MEDS: diazePAM 5 MG TABLET PO SCH (17:21)
[2024-03-24] MEDS: cloNIDine HCL 0.1 MG TABLET PO PRN (21:30)
[2024-03-24] MEDS: THIAMINE 100 MG TABLET PO SCH (21:52)
[2024-03-24] MEDS: SUVOREXANT 5 MG TABLET PO PRN (21:52)
[2024-03-24] MEDS ORDERED: MELATONIN 5 MG TABLETS PO SCH (22:00)
[2024-03-25] MEDS: traZODone HCL 50 MG TABLET (FP) PO SCH
[2024-03-25] MEDS: NICOTINE 14 MG/24 HOURS TOPICAL PATCH TD SCH (10:03)
[2024-03-25] MEDS: PRENATAL VITAMINS W/ FOLIC ACID TABLET (FP) PO SCH (10:04)
[2024-03-25] MEDS: diazePAM 5 MG TABLET PO PRN (13:30)
[2024-03-25] MEDS: NICOTINE POLACRILEX 2 MG GUM BUC PRN (13:32)
[2024-03-25] MEDS: NYSTATIN 500,000 UNITS/5 ML SUSPENSION PO SCH (13:55)
[2024-03-25 14:48] LABS: HEMATOCRIT 36.2 % (32.4-45.2); HEMOGLOBIN 12.3 GM/dL (10.7-15.3); MCH 30.6 pg (25.7-33.7); MCHC 33.9 g/dl (32.0-36.0); MEAN CELL VOLUME 90.3 fl (80-96); MEAN PLT VOLUME 8.5 fl (7.5-11.1); PLATELET COUNT 264 10^3/uL (134-434); RBC 4.01 M/mm3 (3.60-5.2); RDW 12.6 % (11.6-15.6); WHITE BLOOD COUNT 7.1 K/mm3 (4.0-10.0)
[2024-03-25 14:54] LABS: CHLORIDE 105 mmol/L (98-107); POTASSIUM 4.4 mmol/L (3.5-5.1); SODIUM 138 mmol/L (136-145)
[2024-03-25 14:58] LABS: ALBUMIN 3.8 g/dl (3.4-5.0); ANION GAP 6 mmol/L (4-13); BLOOD UREA NITROGEN 13.4 mg/dL (7-18); CALCIUM 9.1 mg/dL (8.5-10.1); CO2 26 mmol/L (21-32); GLUCOSE,RANDOM 102 mg/dL (74-106)
[2024-03-25 15:01] LABS: CREATININE 0.9 mg/dL (0.55-1.3); SGPT/ALT 19 U/L (13-61)
[2024-03-25 15:02] LABS: SGOT/AST 8 U/L (15-37)
[2024-03-25 15:03] LABS: BILIRUBIN,TOTAL 0.4 mg/dL (0.2-1); TOT PROT 6.4 g/dl (6.4-8.2)
[2024-03-25 15:04] LABS: ALK PHOS 66 U/L (45-117)
[2024-03-25] MEDS: ACETAMINOPHEN 325 MG TABLET (FP) PO PRN (17:33)
[2024-03-26] MEDS: diazePAM 5 MG TABLET PO SCH (06:17)
[2024-03-26] MEDS: methaDONE HCL 10 MG TABLET (FOR DETOX USE ONLY) PO ONE (09:09)
[2024-03-26] MEDS: FERROUS SO4 325 MG TABLET (FP) PO ONE (10:28)
[2024-03-27] MEDS: diazePAM 5 MG TABLET PO SCH (06:02)
[2024-03-27] MEDS: MAG HYDROX/AL HYDROX/SIMETH 30 ML UNIT-DOSE CUP PO PRN (21:44)
[2024-03-27] MEDS: hydrOXYzine PAMOATE 25 MG CAPSULE (FP) PO PRN (22:31)
[2024-03-28] MEDS: diazePAM 5 MG TABLET PO ONE (06:13)
[2024-03-28] MEDS: methaDONE HCL 10 MG TABLET (FOR DETOX USE ONLY) PO ONE (09:38)
[2024-03-28] MEDS: SUVOREXANT 5 MG TABLET PO PRN (22:18)
[2024-03-29 06:07] VITALS: TEMP 97.7
[2024-03-29 08:57] VITALS: BP 103/64; PULSE 61; RESP 17
== END 2024-03-29 09:30 | disposition home or self-care (01) | DRG 773 ==
LOC: YASAS 11:04 → Y3N 12:38
PROVIDERS: ADMIT Allergy & Immunology; ATTEND Surgery
PROC: HZ2ZZZZ Detoxification Services for Substance Abuse Treatment (ICD-10-PCS; principal; 2024-03-24)
DX: F11.23 Opioid dependence with withdrawal (principal); F10.230 Alcohol dependence with withdrawal, uncomplicated; F13.20 Sedative, hypnotic or anxiolytic dependence, uncomplicated; F14.10 Cocaine abuse, uncomplicated; F12.20 Cannabis dependence, uncomplicated; F17.210 Nicotine dependence, cigarettes, uncomplicated; F41.9 Anxiety disorder, unspecified; F32.A Depression, unspecified; F42.9 Obsessive-compulsive disorder, unspecified; F90.9 Attention-deficit hyperactivity disorder, unspecified type; Z62.810 Personal history of physical and sexual abuse in childhood; Z63.8 Other specified problems related to primary support group; Z88.8 Allergy status to other drugs, medicaments and biological substances
CPT/HCPCS: 36415; 80053; 80305; 80307; 81025; 84443; 85027; 86780; 93005; 93010

== ENCOUNTER 2024-06-16 14:57 | Inpatient (IN) | payer OTHER ==
[2024-06-16] MEDS ORDERED: IBUPROFEN 400 MG TABLET (FP) PO PRN (15:53)
[2024-06-16] MEDS ORDERED: LOPERAMIDE HCL 2 MG CAPSULE PO PRN (15:53)
[2024-06-16] MEDS ORDERED: POLYETHYLENE GLYCOL (HEALTHYLAX) 3350 17 GM PACKET PO PRN (15:53)
[2024-06-16] MEDS ORDERED: IBUPROFEN 600 MG TABLET (FP) PO PRN (15:53)
[2024-06-16] MEDS ORDERED: MAGNESIUM HYDROX 2400MG/30ML ORAL SUSPENSION 30 ML CUP PO PRN (15:53)
[2024-06-16] MEDS ORDERED: NICOTINE POLACRILEX 2 MG LOZENGE BC PRN (15:53)
[2024-06-16] MEDS ORDERED: P-EPHED 60MG/TRIPROLIDI 2.5MG TABLET PO PRN (15:53)
[2024-06-16] MEDS ORDERED: NALOXONE (NARCAN) HCL 4 MG/0.1 ML SPRAY NS PRN (15:53)
[2024-06-16] MEDS ORDERED: NICOTINE POLACRILEX 2 MG GUM BUC PRN (15:53)
[2024-06-16] MEDS ORDERED: BENZONATATE 200 MG CAPSULE PO PRN (15:53)
[2024-06-16] MEDS ORDERED: BENZOCAINE/MENTHOL (CHLORASEPTIC ) LOZENGE MM PRN (15:53)
[2024-06-16] MEDS ORDERED: guaiFENesin 600 MG TABLET.ER (FP) PO PRN (15:53)
[2024-06-16] MEDS ORDERED: NALOXONE (NYS OPIOID OVERDOSE PROGRAM) 4 MG/0.1 ML SPRAY NS PRN (15:53)
[2024-06-16] MEDS ORDERED: DICYCLOMINE HCL 10 MG CAPSULE PO PRN (15:53)
[2024-06-16] MEDS ORDERED: ACETAMINOPHEN 325 MG TABLET (FP) PO PRN (15:53)
[2024-06-16] MEDS ORDERED: hydrOXYzine PAMOATE 25 MG CAPSULE (FP) PO PRN (15:53)
[2024-06-16 15:56] VITALS: BMI 30.3
[2024-06-16] MEDS ORDERED: methaDONE HCL 10 MG TABLET (FOR DETOX USE ONLY) ONE (16:25)
[2024-06-16] MEDS ORDERED: ONDANSETRON *ODT* 4 MG TABLET ONE (16:26)
[2024-06-16] MEDS: methaDONE HCL 10 MG TABLET (FOR DETOX USE ONLY) PO ONE (16:38)
[2024-06-16] MEDS: ONDANSETRON *ODT* 4 MG TABLET SL PRN (16:39)
[2024-06-16] MEDS ORDERED: diazePAM 5 MG TABLET ONE (17:22)
[2024-06-16] MEDS: diazePAM 5 MG TABLET PO PRN (17:25)
[2024-06-16] MEDS: THIAMINE 100 MG TABLET PO SCH (21:59)
[2024-06-16] MEDS: MELATONIN 5 MG TABLETS PO SCH (21:59)
[2024-06-16] MEDS: METHOCARBAMOL 500 MG TABLET PO PRN (23:24)
[2024-06-16] MEDS: traZODone HCL 50 MG TABLET (FP) PO ONE (23:32)
[2024-06-17] MEDS: PRENATAL VITAMINS W/ FOLIC ACID TABLET (FP) PO SCH (09:13)
[2024-06-17] MEDS: PNEUMOC 20-VAL CONJ-DIP CRM/PF 0.5 ML SYRINGE IM ONE (12:11)
[2024-06-17] MEDS: BISMUTH SUBSALICYLATE 524 MG/30 ML PO PRN (13:21)
[2024-06-17 14:29] LABS: HEMATOCRIT 38.2 % (32.4-45.2); HEMOGLOBIN 12.9 GM/dL (10.7-15.3); MCH 30.4 pg (25.7-33.7); MCHC 33.7 g/dl (32.0-36.0); MEAN CELL VOLUME 90.3 fl (80-96); MEAN PLT VOLUME 8.1 fl (7.5-11.1); PLATELET COUNT 299 10^3/uL (134-434); RBC 4.23 M/mm3 (3.60-5.2); RDW 13.3 % (11.6-15.6); WHITE BLOOD COUNT 7.3 K/mm3 (4.0-10.0)
[2024-06-17] MEDS: TRIMETHOBENZAMIDE HCL 200MG/2ML INJ IM ONE (14:59)
[2024-06-17] MEDS: PANTOPRAZOLE 40 MG TABLET PO SCH (15:00)
[2024-06-17 15:18] LABS: CHLORIDE 102 mmol/L (98-107); SODIUM 138 mmol/L (136-145)
[2024-06-17 15:21] LABS: ALBUMIN 4.1 g/dl (3.4-5.0); ANION GAP 8 mmol/L (4-13); BLOOD UREA NITROGEN 13.4 mg/dL (7-18); CALCIUM 9.5 mg/dL (8.5-10.1); CO2 28 mmol/L (21-32); GLUCOSE,RANDOM 115 mg/dL (74-106)
[2024-06-17 15:24] LABS: SGPT/ALT 26 U/L (13-61)
[2024-06-17 15:25] LABS: CREATININE 0.9 mg/dL (0.55-1.3); SGOT/AST 16 U/L (15-37)
[2024-06-17 15:26] LABS: BILIRUBIN,TOTAL 0.4 mg/dL (0.2-1); TOT PROT 6.9 g/dl (6.4-8.2)
[2024-06-17 15:27] LABS: ALK PHOS 74 U/L (45-117)
[2024-06-17] MEDS: diazePAM 5 MG TABLET PO PRN (15:29)
[2024-06-17 16:15] LABS: HIV INTERPRETATION NEGATIVE (NEGATIVE)
[2024-06-17] MEDS: diazePAM 5 MG TABLET PO SCH (17:32)
[2024-06-17] MEDS: MAG HYDROX/AL HYDROX/SIMETH 30 ML UNIT-DOSE CUP PO PRN (20:05)
[2024-06-17] MEDS: GABAPENTIN 400 MG CAPSULE PO SCH (21:08)
[2024-06-17] MEDS: traZODone HCL 50 MG TABLET (FP) PO SCH (21:08)
[2024-06-17] MEDS: SUVOREXANT 5 MG TABLET PO PRN (21:16)
[2024-06-17] MEDS: hydrOXYzine PAMOATE 25 MG CAPSULE (FP) PO PRN (23:22)
[2024-06-18] MEDS: cloNIDine HCL 0.1 MG TABLET PO PRN (02:45)
[2024-06-18] MEDS: methaDONE HCL 10 MG TABLET (FOR DETOX USE ONLY) PO ONE (10:12)
[2024-06-19] MEDS: diazePAM 5 MG TABLET PO SCH (05:35)
[2024-06-19] MEDS: CYPROHEPTADINE HCL 4 MG TABLET PO SCH (11:54)
[2024-06-19] MEDS: SUVOREXANT 10 MG TABLET PO PRN (22:11)
[2024-06-20] MEDS: diazePAM 5 MG TABLET PO SCH (06:05)
[2024-06-20] MEDS: methaDONE HCL 10 MG TABLET (FOR DETOX USE ONLY) PO ONE (09:24)
[2024-06-20] MEDS: QUEtiapine FUMARATE 50 MG TABLET PO SCH (21:47)
[2024-06-21] MEDS: diazePAM 5 MG TABLET PO ONE (05:28)
[2024-06-21] MEDS: NALOXONE (NYS OPIOID OVERDOSE PROGRAM) 4 MG/0.1 ML SPRAY NS SCH (08:57)
[2024-06-21 09:37] VITALS: BP 119/74; PULSE 90; RESP 18; TEMP 97.7
== END 2024-06-21 10:44 | disposition home or self-care (01) | DRG 773 ==
LOC: YASAS 14:57 → Y3N 16:49
PROVIDERS: ADMIT Allergy & Immunology; ATTEND Allergy & Immunology
PROC: HZ2ZZZZ Detoxification Services for Substance Abuse Treatment (ICD-10-PCS; principal; 2024-06-16)
DX: F11.23 Opioid dependence with withdrawal (principal); F10.230 Alcohol dependence with withdrawal, uncomplicated; F13.20 Sedative, hypnotic or anxiolytic dependence, uncomplicated; F14.10 Cocaine abuse, uncomplicated; F12.10 Cannabis abuse, uncomplicated; F17.210 Nicotine dependence, cigarettes, uncomplicated; F33.1 Major depressive disorder, recurrent, moderate; F19.280 Other psychoactive substance dependence with psychoactive substance-induced anxiety disorder; F19.24 Other psychoactive substance dependence with psychoactive substance-induced mood disorder; F41.9 Anxiety disorder, unspecified; F90.9 Attention-deficit hyperactivity disorder, unspecified type; F42.9 Obsessive-compulsive disorder, unspecified; G47.00 Insomnia, unspecified; K21.9 Gastro-esophageal reflux disease without esophagitis; R11.2 Nausea with vomiting, unspecified; Z62.810 Personal history of physical and sexual abuse in childhood
CPT/HCPCS: 36415; 80053; 80305; 80307; 81025; 85027; 86803; 87389; Q0162

== ENCOUNTER 2024-07-26 09:44 | Inpatient (IN) | payer OTHER ==
[2024-07-26 10:03] VITALS: BMI 30.3
[2024-07-26] MEDS ORDERED: IBUPROFEN 400 MG TABLET (FP) PO PRN (11:35)
[2024-07-26] MEDS ORDERED: LOPERAMIDE HCL 2 MG CAPSULE PO PRN (11:35)
[2024-07-26] MEDS ORDERED: NALOXONE (NARCAN) HCL 4 MG/0.1 ML SPRAY NS PRN (11:35)
[2024-07-26] MEDS ORDERED: BENZONATATE 200 MG CAPSULE PO PRN (11:35)
[2024-07-26] MEDS ORDERED: BENZOCAINE/MENTHOL (CHLORASEPTIC ) LOZENGE MM PRN (11:35)
[2024-07-26] MEDS ORDERED: MAG HYDROX/AL HYDROX/SIMETH 30 ML UNIT-DOSE CUP PO PRN (11:35)
[2024-07-26] MEDS ORDERED: BISMUTH SUBSALICYLATE 262 MG/15 ML BTL PO PRN (11:35)
[2024-07-26] MEDS ORDERED: POLYETHYLENE GLYCOL (HEALTHYLAX) 3350 17 GM PACKET PO PRN (11:35)
[2024-07-26] MEDS ORDERED: MAGNESIUM HYDROX 2400MG/30ML ORAL SUSPENSION 30 ML CUP PO PRN (11:35)
[2024-07-26] MEDS ORDERED: DICYCLOMINE HCL 10 MG CAPSULE PO PRN (11:35)
[2024-07-26] MEDS ORDERED: ACETAMINOPHEN 325 MG TABLET (FP) PO PRN (11:35)
[2024-07-26] MEDS ORDERED: guaiFENesin 600 MG TABLET.ER (FP) PO PRN (11:35)
[2024-07-26] MEDS ORDERED: methaDONE HCL 10 MG TABLET (FOR DETOX USE ONLY) ONE (12:10)
[2024-07-26] MEDS: methaDONE HCL 10 MG TABLET (FOR DETOX USE ONLY) PO ONE (12:13)
[2024-07-26] MEDS: cloNIDine HCL 0.1 MG TABLET PO SCH (14:37)
[2024-07-26] MEDS: METHOCARBAMOL 500 MG TABLET PO PRN (15:53)
[2024-07-26] MEDS: hydrOXYzine PAMOATE 25 MG CAPSULE (FP) PO PRN (15:53)
[2024-07-26] MEDS: diazePAM 5 MG TABLET PO SCH (17:05)
[2024-07-26] MEDS: ONDANSETRON *ODT* 4 MG TABLET SL PRN (17:08)
[2024-07-26] MEDS: IBUPROFEN 600 MG TABLET (FP) PO PRN (18:44)
[2024-07-26] MEDS: diazePAM 5 MG TABLET PO PRN (19:35)
[2024-07-26] MEDS: THIAMINE 100 MG TABLET PO SCH (22:07)
[2024-07-26] MEDS: MELATONIN 5 MG TABLETS PO SCH (22:07)
[2024-07-26] MEDS: BUPRENORPHINE/NALOXONE 0.5 MG/0.125 MG FILM SL ONE (22:16)
[2024-07-27 09:10] LABS: HEMATOCRIT 36.1 % (32.4-45.2); HEMOGLOBIN 12.6 GM/dL (10.7-15.3); MCH 31.6 pg (25.7-33.7); MEAN CELL VOLUME 90.3 fl (80-96); MEAN PLT VOLUME 7.9 fl (7.5-11.1); PLATELET COUNT 263 10^3/uL (134-434); RBC 3.99 M/mm3 (3.60-5.2); RDW 13.4 % (11.6-15.6); WHITE BLOOD COUNT 6.4 K/mm3 (4.0-10.0)
[2024-07-27] MEDS: PRENATAL VITAMINS W/ FOLIC ACID TABLET (FP) PO SCH (09:29)
[2024-07-27] MEDS: BUPRENORPHINE/NALOXONE 0.5 MG/0.125 MG FILM SL SCH (09:29)
[2024-07-27 09:32] LABS: POTASSIUM 4.3 mmol/L (3.5-5.1)
[2024-07-27 09:36] LABS: CALCIUM 8.9 mg/dL (8.5-10.1)
[2024-07-27 09:37] LABS: ALBUMIN 3.4 g/dl (3.4-5.0); BLOOD UREA NITROGEN 11.2 mg/dL (7-18)
[2024-07-27 09:40] LABS: CREATININE 0.7 mg/dL (0.55-1.3)
[2024-07-27 09:41] LABS: BILIRUBIN,TOTAL 0.4 mg/dL (0.2-1); TOT PROT 6.1 g/dl (6.4-8.2)
[2024-07-27] MEDS: GABAPENTIN 300 MG CAPSULE PO SCH (14:45)
[2024-07-27] MEDS ORDERED: QUEtiapine FUMARATE 25 MG TABLET PO PRN (22:00)
[2024-07-27] MEDS: QUEtiapine FUMARATE 25 MG TABLET PO SCH (22:20)
[2024-07-27] MEDS: SUVOREXANT 10 MG TABLET PO PRN (22:22)
[2024-07-28] MEDS: diazePAM 5 MG TABLET PO SCH (06:23)
[2024-07-28] MEDS: methaDONE HCL 10 MG TABLET (FOR DETOX USE ONLY) PO ONE (09:41)
[2024-07-28] MEDS: BUPRENORPHINE/NALOXONE 2 MG/0.5 MG FILM PACKET SL SCH (09:42)
[2024-07-28] MEDS ORDERED: NICOTINE POLACRILEX 2 MG GUM BUC PRN (15:16)
[2024-07-29] MEDS: diazePAM 5 MG TABLET PO SCH (05:46)
[2024-07-29] MEDS: BUPRENORPHINE/NALOXONE 4 MG/1 MG FILM PACKET SL SCH (10:06)
[2024-07-30] MEDS: diazePAM 5 MG TABLET PO ONE (06:07)
[2024-07-30] MEDS ORDERED: BUPRENORPHINE/NALOXONE 8 MG/2 MG FILM PACKET SL SCH (10:00)
[2024-07-30] MEDS: methaDONE HCL 10 MG TABLET (FOR DETOX USE ONLY) PO ONE (10:45)
[2024-07-30] MEDS: NALOXONE (NYS OPIOID OVERDOSE PROGRAM) 4 MG/0.1 ML SPRAY NS SCH (12:24)
[2024-07-31] MEDS ORDERED: BUPRENORPHINE/NALOXONE 8 MG/2 MG FILM PACKET SL SCH (10:00)
[2024-08-01 06:51] VITALS: TEMP 97.8
[2024-08-01 10:25] VITALS: BP 118/79; PULSE 81; RESP 18
== END 2024-08-01 09:40 | disposition other institution (70) | DRG 773 ==
LOC: YASAS 09:44 → Y6N 14:25
PROVIDERS: ADMIT Allergy & Immunology; ATTEND Surgery
PROC: HZ2ZZZZ Detoxification Services for Substance Abuse Treatment (ICD-10-PCS; principal; 2024-07-26)
DX: F11.23 Opioid dependence with withdrawal (principal); F10.230 Alcohol dependence with withdrawal, uncomplicated; F13.230 Sedative, hypnotic or anxiolytic dependence with withdrawal, uncomplicated; F14.10 Cocaine abuse, uncomplicated; F12.10 Cannabis abuse, uncomplicated; F17.210 Nicotine dependence, cigarettes, uncomplicated; F19.280 Other psychoactive substance dependence with psychoactive substance-induced anxiety disorder; F19.282 Other psychoactive substance dependence with psychoactive substance-induced sleep disorder; F19.24 Other psychoactive substance dependence with psychoactive substance-induced mood disorder; F33.1 Major depressive disorder, recurrent, moderate; F43.10 Post-traumatic stress disorder, unspecified; F42.9 Obsessive-compulsive disorder, unspecified; Z62.810 Personal history of physical and sexual abuse in childhood; Z88.8 Allergy status to other drugs, medicaments and biological substances
CPT/HCPCS: 36415; 80053; 80307; 85027; 86780; 93005; 93010; Q0162